=== PATIENT | female | born 1995 | race Caucasian/White ===

== ENCOUNTER 2020-09-01 07:11 | Emergency (ER) | payer SELFPAY ==
[~2020-09-01] VITALS: Ht 165.1 cm; Wt 90.7 kg
[2020-09-01] MEDS ORDERED: SODIUM CHLORIDE 0.9% 1,000 ML IV ONE ×2 (08:00)
[2020-09-01] MEDS ORDERED: ONDANSETRON HCL 4 MG/2 ML VIAL IV ONE (08:00)
[2020-09-01 08:01] LABS: Urine Amorphous Crystal MANY /hpf (None Seen); Urine Bacteria FEW /hpf (None Seen); Urine Blood Negative /uL (Negative); Urine Budding Yeast OCCASIONAL /hpf (None Seen); Urine Mucus MODERATE (None Seen); Urine Specific Gravity 1.034 (1.001-1.035); Urine WBC 30 /hpf (0 - 5)
[2020-09-01 08:11] LABS: Basophils # (auto) 0.1 10 ^3/uL (0-0.2); Basophils % (auto) 0.8 % (0.0-2.0); Eosinophils # (auto) 0.2 10 ^3/uL (0-0.8); Eosinophils % (auto) 1.4 % (0.0-7.0); Hemoglobin 13.2 g/dL (12.2-16.2); Lymphocytes # (auto) 3.5 10 ^3/uL (0.4-5.4); Lymphocytes % (auto) 31.5 % (10.0-50.0); Mean Corpuscular Hemoglobin 28.4 pg (28.0-32.0); Mean Corpuscular Hgb Conc. 33.7 g/dL (32.0-36.0); Mean Corpuscular Volume 84.1 fL (80.0-100.0); Monocytes # (auto) 0.9 10 ^3/uL (0-1.3); Monocytes % (auto) 8.4 % (0.0-12.0); Neutrophils # (auto) 6.5 10 ^3/uL (1.6-8.6); Neutrophils % (auto) 57.9 % (37.0-80.0); Nucleated Red Blood Cells % 0.1 %; Red Blood Cells 4.64 10^6/uL (4.0-5.20); Red Cell Distribution Width 14.6 % (11.8-14.3); White Blood Cell 11.2 10^3/uL (4.4-10.8)
[2020-09-01 08:30] LABS: Potassium 3.8 mmol/L (3.5-5.1)
[2020-09-01] MEDS ORDERED: cefTRIAXone 1GM/50ML D5W 50 ML IV ONE ×2 (08:36→08:45)
[2020-09-01 08:38] LABS: Albumin 3.8 g/dL (3.4-5.0); BUN/Creatinine Ratio 14.3; Bilirubin, Total 0.4 mg/dL (0.2-1.0); Calcium 8.9 mg/dL (8.5-10.1); Total Protein 7.7 g/dL (6.4-8.2)
[2020-09-01 11:59] VITALS: BP 119/58
== END 2020-09-01 12:03 | disposition home or self-care (01) ==
LOC: ER 07:11
DX: N39.0 Urinary tract infection, site not specified (principal); K29.70 Gastritis, unspecified, without bleeding
CPT/HCPCS: 36415; 74176; 80053; 81001; 81025; 85025; 96365; 96375; 99285; J0696; J2405; J7030

== ENCOUNTER 2020-09-15 01:53 | Emergency (ER) | payer OTHER ==
[~2020-09-15] VITALS: Ht 165.1 cm; Wt 90.7 kg
[2020-09-15 02:03] VITALS: BP 149/62
[2020-09-15 02:24] LABS: Basophils # (auto) 0.3 10 ^3/uL (0-0.2); Eosinophils # (auto) 0.1 10 ^3/uL (0-0.8); Eosinophils % (auto) 0.6 % (0.0-7.0); Hematocrit 39.6 % (36.0-46.0); Hemoglobin 13.3 g/dL (12.2-16.2); Lymphocytes % (auto) 19.4 % (10.0-50.0); Mean Corpuscular Hemoglobin 28.1 pg (28.0-32.0); Mean Corpuscular Hgb Conc. 33.6 g/dL (32.0-36.0); Mean Corpuscular Volume 83.5 fL (80.0-100.0); Monocytes % (auto) 6.3 % (0.0-12.0); Neutrophils % (auto) 71.7 % (37.0-80.0); Nucleated Red Blood Cells % 0.2 %; Red Blood Cells 4.74 10^6/uL (4.0-5.20); Red Cell Distribution Width 14.1 % (11.8-14.3); White Blood Cell 15.4 10^3/uL (4.4-10.8)
[2020-09-15 02:44] LABS: Alanine Aminotransferase 21 U/L (13-56); Anion Gap 9 (5-15); Aspartate Aminotransferase 17 U/L (15-37); BUN/Creatinine Ratio 12.5; Blood Urea Nitrogen 8 mg/dL (7-18); Calcium 9.1 mg/dL (8.5-10.1); Carbon Dioxide 22 mmol/L (21-32); Chloride 109 mmol/L (98-107); GFR African American 144 mL/min; GFR Non-African American 119 mL/min; Glucose 107 mg/dL (74-106); Potassium 3.5 mmol/L (3.5-5.1); Sodium 140 mmol/L (136-145)
[2020-09-15 02:48] LABS: Alkaline Phosphatase 92 U/L (45-117); Bilirubin, Total 0.4 mg/dL (0.2-1.0); Total Protein 8.2 g/dL (6.4-8.2)
[2020-09-15 04:03] LABS: Urine Bacteria FEW /hpf (None Seen); Urine Blood 2+ /uL (Negative); Urine Mucus MODERATE (None Seen); Urine Specific Gravity 1.042 (1.001-1.035); Urine WBC 17 /hpf (0 - 5)
== END 2020-09-15 05:08 | disposition left against medical advice (07) ==
LOC: ER 01:56
DX: R07.9 Chest pain, unspecified (principal); R06.02 Shortness of breath; R11.2 Nausea with vomiting, unspecified; M54.5 Low back pain; Z53.21 Procedure and treatment not carried out due to patient leaving prior to being seen by health care provider
CPT/HCPCS: 36415; 71045; 80053; 81001; 83880; 84484; 85025; 93005

== ENCOUNTER 2020-09-15 15:02 | Emergency (ER) | payer SELFPAY ==
[~2020-09-15] VITALS: Ht 165.1 cm; Wt 90.7 kg
[2020-09-15 15:28] VITALS: BP 117/84
[2020-09-15 18:47] LABS: Urine Bacteria NONE SEEN /hpf (None Seen); Urine Blood 3+ /uL (Negative); Urine Mucus FEW (None Seen); Urine Specific Gravity 1.022 (1.001-1.035); Urine WBC 136 /hpf (0 - 5)
== END 2020-09-15 18:27 | disposition left against medical advice (07) ==
LOC: ER 15:02
DX: N39.0 Urinary tract infection, site not specified (principal); Z53.21 Procedure and treatment not carried out due to patient leaving prior to being seen by health care provider
CPT/HCPCS: 81001

== ENCOUNTER 2020-09-19 04:23 | Emergency (ER) | payer MEDICAID, OTHER ==
[~2020-09-19] VITALS: Ht 160 cm; Wt 81.6 kg
[2020-09-19 05:39] LABS: Albumin 3.8 g/dL (3.4-5.0); Calcium 9.5 mg/dL (8.5-10.1)
[2020-09-19 05:42] LABS: BUN/Creatinine Ratio 11.4; Bilirubin, Total 0.6 mg/dL (0.2-1.0); Total Protein 8.1 g/dL (6.4-8.2)
[2020-09-19 06:40] LABS: Potassium 5.7 mmol/L (3.5-5.1)
[2020-09-19] MEDS ORDERED: PROMETHAZINE HCL 25 MG/ML 1ML IV ONE (06:45)
[2020-09-19] MEDS ORDERED: SODIUM CHLORIDE 0.9% 1,000 ML IV ONE ×3 (06:45)
[2020-09-19] MEDS ORDERED: ONDANSETRON HCL 4 MG/2 ML VIAL IV ONE (06:45)
[2020-09-19] MEDS ORDERED: KETOROLAC TROMETH 30 MG/ML 1ML VIAL IV ONE ×2 (06:45)
[2020-09-19 06:53] LABS: Urine Bacteria NONE SEEN /hpf (None Seen); Urine Blood 2+ /uL (Negative); Urine Mucus FEW (None Seen); Urine Specific Gravity 1.018 (1.001-1.035); Urine WBC 2 /hpf (0 - 5)
[2020-09-19 06:59] LABS: Basophils # (auto) 0.1 10 ^3/uL (0-0.2); Basophils % (auto) 0.6 % (0.0-2.0); Eosinophils # (auto) 0.1 10 ^3/uL (0-0.8); Eosinophils % (auto) 0.5 % (0.0-7.0); Hematocrit 40.1 % (36.0-46.0); Hemoglobin 13.8 g/dL (12.2-16.2); Lymphocytes # (auto) 3.7 10 ^3/uL (0.4-5.4); Lymphocytes % (auto) 28.3 % (10.0-50.0); Mean Corpuscular Hemoglobin 28.1 pg (28.0-32.0); Mean Corpuscular Hgb Conc. 34.5 g/dL (32.0-36.0); Mean Corpuscular Volume 81.4 fL (80.0-100.0); Monocytes % (auto) 7.7 % (0.0-12.0); Neutrophils # (auto) 8.3 10 ^3/uL (1.6-8.6); Neutrophils % (auto) 62.9 % (37.0-80.0); Nucleated Red Blood Cells % 0.1 %; Red Blood Cells 4.92 10^6/uL (4.0-5.20); White Blood Cell 13.2 10^3/uL (4.4-10.8)
[2020-09-19 07:25] LABS: Albumin 4.4 g/dL (3.4-5.0); Calcium 9.9 mg/dL (8.5-10.1); Potassium 3.8 mmol/L (3.5-5.1)
[2020-09-19 07:30] LABS: Bilirubin, Total 0.6 mg/dL (0.2-1.0); Total Protein 7.9 g/dL (6.4-8.2)
[2020-09-19] MEDS ORDERED: ALUM & MAG HYDROX-SIMETH LIQ(MAALOX) 30 ML PO ONE (08:30)
[2020-09-19] MEDS ORDERED: LIDOCAINE VISCOUS 2% 15ML UD PO ONE (08:30)
[2020-09-19] MEDS ORDERED: DONNATAL 5ml ORAL Elix (BELLADONNA ALK-PHENOBARB) PO ONE (08:30)
[2020-09-19 09:30] VITALS: BP 120/73
== END 2020-09-19 09:51 | disposition home or self-care (01) ==
LOC: ER 04:23 → EDBD 04:23 → ER 09:51
DX: R10.13 Epigastric pain (principal); R11.2 Nausea with vomiting, unspecified; R19.7 Diarrhea, unspecified
CPT/HCPCS: 36415; 71045; 74176; 80053; 81001; 83605; 85025; 87040; 96361; 96374; 96375; 99285; J1885; J2550; J7030

== ENCOUNTER 2021-03-02 11:41 | Emergency (ER) | payer MEDICAID ==
[~2021-03-02] VITALS: Ht 162.6 cm; Wt 90.7 kg
[2021-03-02 11:46] VITALS: BP 110/71
== END 2021-03-02 13:33 | disposition left against medical advice (07) ==
LOC: ER 11:41
DX: R07.0 Pain in throat (principal); H92.02 Otalgia, left ear; Z20.822 Contact with and (suspected) exposure to COVID-19; Z53.21 Procedure and treatment not carried out due to patient leaving prior to being seen by health care provider
CPT/HCPCS: 36415; 87426

== ENCOUNTER 2021-10-11 06:42 | Emergency (ER) | payer MEDICAID ==
[~2021-10-11] VITALS: Ht 165.1 cm; Wt 86.2 kg
[2021-10-11] MEDS ORDERED: SODIUM CHLORIDE 0.9% 1,000 ML IVB ONE (07:00)
[2021-10-11] MEDS: SODIUM CHLORIDE 0.9% 1,000 ML IV ONE ×2 (07:37→10:23)
[2021-10-11] MEDS ORDERED: MORPHINE SULFATE 4 MG/ML SYR/VIAL IV ONE (07:45)
[2021-10-11] MEDS ORDERED: PROCHLORPERAZINE EDISYLATE 5 MG/ML 2ML VIAL IV ONE (07:45)
[2021-10-11 07:55] LABS: Basophils # (auto) 0.1 10 ^3/uL (0-0.2); Basophils % (auto) 0.6 % (0.0-2.0); Eosinophils # (auto) 0.1 10 ^3/uL (0-0.8); Eosinophils % (auto) 0.4 % (0.0-7.0); Hematocrit 40.2 % (36.0-46.0); Hemoglobin 13.5 g/dL (12.2-16.2); Lymphocytes # (auto) 2.7 10 ^3/uL (0.4-5.4); Lymphocytes % (auto) 16.9 % (10.0-50.0); Mean Corpuscular Hemoglobin 28.5 pg (28.0-32.0); Mean Corpuscular Hgb Conc. 33.6 g/dL (32.0-36.0); Monocytes % (auto) 6.2 % (0.0-12.0); Neutrophils # (auto) 12.2 10 ^3/uL (1.6-8.6); Neutrophils % (auto) 75.9 % (37.0-80.0); Red Blood Cells 4.73 10^6/uL (4.0-5.20); Red Cell Distribution Width 14.1 % (11.8-14.3); White Blood Cell 16.1 10^3/uL (4.4-10.8)
[2021-10-11 08:05] LABS: Albumin 4.1 g/dL (3.4-5.0); Calcium 9.2 mg/dL (8.5-10.1); Potassium 3.5 mmol/L (3.5-5.1)
[2021-10-11 08:08] LABS: BUN/Creatinine Ratio 10.8; Bilirubin, Total 0.5 mg/dL (0.2-1.0); Total Protein 7.9 g/dL (6.4-8.2)
[2021-10-11 10:02] LABS: Urine Bacteria NONE SEEN /hpf (None Seen); Urine Blood Negative /uL (Negative); Urine Mucus FEW (None Seen); Urine Specific Gravity 1.026 (1.001-1.035); Urine WBC 1 /hpf (0 - 5)
[2021-10-11 10:09] LABS: Alcohol, Urine < 3.0 mg/dL (0-10); Amphetamine Screen, Urine NEGATIVE (NEGATIVE); Barbiturate Scree,Urine NEGATIVE (NEGATIVE); Benzodiazephine Screen, Urine NEGATIVE (NEGATIVE); Cannabinoid Screen, Urine POSITIVE (NEGATIVE); Cocaine Screen, Urine NEGATIVE (NEGATIVE); Phencyclidine Screen, Urine NEGATIVE (NEGATIVE)
[2021-10-11 10:17] LABS: Opiate Scree,Urine POSITIVE (NEGATIVE)
[2021-10-11 12:00] VITALS: BP 107/65
== END 2021-10-11 13:03 | disposition home or self-care (01) ==
LOC: EDBD 06:42 → ER 06:42
DX: F12.99 Cannabis use, unspecified with unspecified cannabis-induced disorder (principal); R10.84 Generalized abdominal pain; Z91.041 Radiographic dye allergy status
CPT/HCPCS: 36415; 74176; 80053; 80307; 81001; 81025; 83605; 85025; 87040; 96361; 96374; 96375; 99285; J0780; J2270; J7030

== ENCOUNTER 2021-10-21 06:50 | Emergency (ER) | payer MEDICAID ==
[~2021-10-21] VITALS: Ht 165.1 cm; Wt 90.0 kg
[2021-10-21] MEDS ORDERED: PROCHLORPERAZINE EDISYLATE 5 MG/ML 2ML VIAL IV ONE (07:30)
[2021-10-21] MEDS ORDERED: SODIUM CHLORIDE 0.9% 1,000 ML IVB ONE (07:30)
[2021-10-21] MEDS ORDERED: PANTOPRAZOLE 40 MG/10 ML VIAL INJ IV ONE (07:30)
[2021-10-21 08:55] LABS: Albumin 3.6 g/dL (3.4-5.0); Calcium 8.5 mg/dL (8.5-10.1); Potassium 3.6 mmol/L (3.5-5.1)
[2021-10-21 08:58] LABS: BUN/Creatinine Ratio 9.8; Bilirubin, Total 0.4 mg/dL (0.2-1.0); Total Protein 6.7 g/dL (6.4-8.2)
[2021-10-21 09:19] LABS: Urine Bacteria NONE SEEN /hpf (None Seen); Urine Blood Negative /uL (Negative); Urine Specific Gravity 1.005 (1.001-1.035); Urine WBC <1 /hpf (0 - 5)
[2021-10-21 09:34] LABS: Alcohol, Urine < 3.0 mg/dL (0-10); Amphetamine Screen, Urine NEGATIVE (NEGATIVE); Barbiturate Scree,Urine NEGATIVE (NEGATIVE); Benzodiazephine Screen, Urine NEGATIVE (NEGATIVE); Cannabinoid Screen, Urine POSITIVE (NEGATIVE); Cocaine Screen, Urine NEGATIVE (NEGATIVE); Opiate Scree,Urine NEGATIVE (NEGATIVE); Phencyclidine Screen, Urine NEGATIVE (NEGATIVE)
[2021-10-21] MEDS ORDERED: PANT40TA2 PO (09:58)
[2021-10-21 11:00] VITALS: BP 124/74
== END 2021-10-21 11:04 | disposition home or self-care (01) ==
LOC: EDBD 06:50 → ER 06:50 → EDUNIT# 06:50 → ER 11:04
DX: R10.84 Generalized abdominal pain (principal); R11.2 Nausea with vomiting, unspecified; Z79.899 Other long term (current) drug therapy; Z91.041 Radiographic dye allergy status
CPT/HCPCS: 36415; 76705; 80053; 80307; 81001; 81025; 82150; 83690; 85025; 96361; 96374; 96375; 99284; C9113; J0780; J7030

== ENCOUNTER 2022-07-19 01:11 | Emergency (ER) | payer MEDICAID ==
[~2022-07-19] VITALS: Ht 165.1 cm; Wt 90.9 kg
[~2022-07-19 01:11] MED LIST: PANT40TA2 PO
[2022-07-19 01:53] LABS: Basophils # (auto) 0.1 10 ^3/uL (0-0.2); Basophils % (auto) 0.4 % (0.0-2.0); Eosinophils # (auto) 0.1 10 ^3/uL (0-0.8); Eosinophils % (auto) 0.4 % (0.0-7.0); Hematocrit 40.1 % (36.0-46.0); Hemoglobin 13.6 g/dL (12.2-16.2); Lymphocytes # (auto) 2.8 10 ^3/uL (0.4-5.4); Lymphocytes % (auto) 18.6 % (10.0-50.0); Mean Corpuscular Hemoglobin 28.6 pg (28.0-32.0); Mean Corpuscular Volume 84.2 fL (80.0-100.0); Monocytes # (auto) 1.5 10 ^3/uL (0-1.3); Monocytes % (auto) 9.9 % (0.0-12.0); Neutrophils # (auto) 10.5 10 ^3/uL (1.6-8.6); Neutrophils % (auto) 70.7 % (37.0-80.0); Red Blood Cells 4.76 10^6/uL (4.0-5.20); Red Cell Distribution Width 14.5 % (11.8-14.3); White Blood Cell 14.8 10^3/uL (4.4-10.8)
[2022-07-19 02:05] LABS: Calcium 9.4 mg/dL (8.5-10.1); Potassium 3.2 mmol/L (3.5-5.1)
[2022-07-19 02:07] LABS: BUN/Creatinine Ratio 12.5 (10.0-20.0)
[2022-07-19 02:09] LABS: Bilirubin, Total 0.9 mg/dL (0.2-1.0); Total Protein 7.9 g/dL (6.4-8.2)
[2022-07-19] MEDS ORDERED: ONDANSETRON HCL 4 MG/2 ML VIAL IV ONE (02:45)
[2022-07-19] MEDS ORDERED: diphenhdrAMINE HCL 50 MG/1 ML VL IV ONE (02:45)
[2022-07-19] MEDS ORDERED: MORPHINE SULFATE 4 MG/ML SYR/VIAL IV ONE ×2 (02:45→04:30)
[2022-07-19] MEDS ORDERED: SODIUM CHLORIDE 0.9% 1,000 ML IV ONE (02:45)
[2022-07-19] MEDS ORDERED: IOHEXOL 350 MG/ML 100ML IJ ONE (02:47)
[2022-07-19 02:58] LABS: Urine Bacteria FEW /hpf (None Seen); Urine Blood Negative /uL (Negative); Urine Hyaline Cast FEW /lpf (0 - 2); Urine Mucus FEW (None Seen); Urine Specific Gravity 1.016 (1.001-1.035); Urine WBC 12 /hpf (0 - 5)
[2022-07-19] MEDS ORDERED: ONDANSETRON HCL 4 MG/2 ML VIAL ONE (03:17)
[2022-07-19] MEDS ORDERED: DICY10CA PO (04:28)
[2022-07-19] MEDS ORDERED: PRED20TA2 PO (04:28)
[2022-07-19] MEDS ORDERED: ONDA-144 PO (04:28)
[2022-07-19] MEDS ORDERED: DexAMETHasone SOD PHOS 10MG/1ML VIAL INJ IV ONE (04:30)
[2022-07-19 05:46] VITALS: BP 98/62
== END 2022-07-19 06:35 | disposition home or self-care (01) ==
LOC: ER 01:11 → EDBD 01:11 → ER 06:35
DX: R10.13 Epigastric pain (principal); R11.2 Nausea with vomiting, unspecified; F12.10 Cannabis abuse, uncomplicated; Z88.8 Allergy status to other drugs, medicaments and biological substances
CPT/HCPCS: 36415; 74177; 80053; 81001; 83690; 84702; 85025; 96361; 96374; 96375; 96376; 99285; J1100; J1200; J2270; J2405; J7030; Q9967

== ENCOUNTER 2022-07-20 07:40 | Inpatient (IN) | payer MEDICAID ==
[~2022-07-20] VITALS: Ht 165.1 cm; Wt 98.5 kg
[~2022-07-20 07:40] MED LIST changes: +DICY10CA PO; +ONDA-144 PO; +PRED20TA2 PO
[2022-07-20 08:09] LABS: Basophils # (auto) 0 10 ^3/uL (0-0.2); Basophils % (auto) 0.2 % (0.0-2.0); Eosinophils # (auto) 0 10 ^3/uL (0-0.8); Eosinophils % (auto) 0.1 % (0.0-7.0); Hematocrit 37.9 % (36.0-46.0); Hemoglobin 12.7 g/dL (12.2-16.2); Lymphocytes # (auto) 4.4 10 ^3/uL (0.4-5.4); Lymphocytes % (auto) 28.2 % (10.0-50.0); Mean Corpuscular Hemoglobin 28.5 pg (28.0-32.0); Mean Corpuscular Hgb Conc. 33.4 g/dL (32.0-36.0); Mean Corpuscular Volume 85.1 fL (80.0-100.0); Monocytes # (auto) 1.4 10 ^3/uL (0-1.3); Monocytes % (auto) 8.7 % (0.0-12.0); Neutrophils # (auto) 9.8 10 ^3/uL (1.6-8.6); Neutrophils % (auto) 62.8 % (37.0-80.0); Nucleated Red Blood Cells % 0.1 %; Red Blood Cells 4.45 10^6/uL (4.0-5.20); Red Cell Distribution Width 14.4 % (11.8-14.3); White Blood Cell 15.6 10^3/uL (4.4-10.8)
[2022-07-20 08:18] LABS: Urine Bacteria FEW /hpf (None Seen); Urine Blood Negative /uL (Negative); Urine Hyaline Cast FEW /lpf (0 - 2); Urine Mucus FEW (None Seen); Urine Specific Gravity 1.024 (1.001-1.035); Urine WBC 9 /hpf (0 - 5)
[2022-07-20 08:20] LABS: Albumin 3.9 g/dL (3.4-5.0); Calcium 8.9 mg/dL (8.5-10.1); Potassium 3.2 mmol/L (3.5-5.1)
[2022-07-20 08:23] LABS: BUN/Creatinine Ratio 10.2 (10.0-20.0); Bilirubin, Total 0.6 mg/dL (0.2-1.0); Total Protein 7.5 g/dL (6.4-8.2)
[2022-07-20] MEDS ORDERED: SODIUM CHLORIDE 0.9% 1,000 ML IV ONE ×2 (08:45)
[2022-07-20] MEDS ORDERED: cefTRIAXone 1GM/50ML D5W 50 ML IV ONE (08:45)
[2022-07-20 09:08] LABS: Alcohol, Urine < 3.0 mg/dL (0-10); Amphetamine Screen, Urine NEGATIVE (NEGATIVE); Barbiturate Scree,Urine NEGATIVE (NEGATIVE); Benzodiazephine Screen, Urine NEGATIVE (NEGATIVE); Cannabinoid Screen, Urine POSITIVE (NEGATIVE); Cocaine Screen, Urine POSITIVE (NEGATIVE); Opiate Scree,Urine NEGATIVE (NEGATIVE); Phencyclidine Screen, Urine NEGATIVE (NEGATIVE)
[2022-07-20] MEDS ORDERED: SOD CHL 0.9%/ KCL 40MEQ 1,000 ML IV ONE (10:00)
[2022-07-20] MEDS: PANTOPRAZOLE 40 MG/10 ML VIAL INJ IV SCH ×2 (10:27→22:09)
[2022-07-20] MEDS: ONDANSETRON HCL 4 MG/2 ML VIAL IV PRN ×2 (10:31→20:26)
[2022-07-20] MEDS: MORPHINE SULFATE INJ 2 MG/ml SYRG IV PRN (10:37)
[2022-07-20 11:05] LABS: INR 1.11 (0.9-1.15)
[2022-07-20] MEDS: metroNIDAZOLE 500MG/100ML 100 ML IV SCH ×2 (11:55→18:19)
[2022-07-20] MEDS: SODIUM CHLORIDE 0.9% 1,000 ML IV SCH ×2 (14:01→18:18)
[2022-07-20 18:09] VITALS: BP 110/74
[2022-07-20] MEDS ORDERED: HYDROcodone-ACET 5/325MG TAB PO ONE (21:15)
[2022-07-20 22:00] VITALS: BP 104/67
[2022-07-20 22:42] LABS: Hematocrit 34.2 % (36.0-46.0); Hemoglobin 11.3 g/dL (12.2-16.2)
[2022-07-21] MEDS: SODIUM CHLORIDE 0.9% 1,000 ML IV SCH ×2 (02:40→11:00)
[2022-07-21] MEDS: metroNIDAZOLE 500MG/100ML 100 ML IV SCH ×2 (03:32→12:23)
[2022-07-21] MEDS: ONDANSETRON HCL 4 MG/2 ML VIAL IV PRN ×2 (03:46→08:00)
[2022-07-21] MEDS: MORPHINE SULFATE INJ 2 MG/ml SYRG IV PRN ×2 (04:43→10:00)
[2022-07-21 05:00] VITALS: BP 140/74
[2022-07-21 05:59] LABS: Basophils # (auto) 0 10 ^3/uL (0-0.2); Basophils % (auto) 0.2 % (0.0-2.0); Eosinophils # (auto) 0 10 ^3/uL (0-0.8); Eosinophils % (auto) 0.1 % (0.0-7.0); Hematocrit 35.4 % (36.0-46.0); Hemoglobin 12.2 g/dL (12.2-16.2); Lymphocytes # (auto) 5.8 10 ^3/uL (0.4-5.4); Lymphocytes % (auto) 35.2 % (10.0-50.0); Mean Corpuscular Hemoglobin 29.2 pg (28.0-32.0); Mean Corpuscular Hgb Conc. 34.4 g/dL (32.0-36.0); Mean Corpuscular Volume 84.9 fL (80.0-100.0); Monocytes # (auto) 1.4 10 ^3/uL (0-1.3); Monocytes % (auto) 8.6 % (0.0-12.0); Neutrophils # (auto) 9.2 10 ^3/uL (1.6-8.6); Neutrophils % (auto) 55.9 % (37.0-80.0); Red Blood Cells 4.17 10^6/uL (4.0-5.20); Red Cell Distribution Width 14.8 % (11.8-14.3); White Blood Cell 16.4 10^3/uL (4.4-10.8)
[2022-07-21 06:17] LABS: Potassium 4.2 mmol/L (3.5-5.1)
[2022-07-21 06:22] LABS: Albumin 3.6 g/dL (3.4-5.0); BUN/Creatinine Ratio 16.2 (10.0-20.0); Bilirubin, Total 0.5 mg/dL (0.2-1.0); Calcium 8.3 mg/dL (8.5-10.1); Total Protein 6.8 g/dL (6.4-8.2)
[2022-07-21] MEDS ORDERED: HYDROcodone-ACET 5/325MG TAB PO ONE (07:45)
[2022-07-21 08:00] VITALS: BP 136/77
[2022-07-21 09:00] VITALS: BP 136/77
[2022-07-21] MEDS ORDERED: cefTRIAXone 1GM/50ML D5W 50 ML IV SCH (09:00)
[2022-07-21 10:14] LABS: Hematocrit 36.4 % (36.0-46.0); Hemoglobin 12.2 g/dL (12.2-16.2)
[2022-07-21] MEDS: PANTOPRAZOLE 40 MG/10 ML VIAL INJ IV SCH (11:23)
[2022-07-21 11:47] VITALS: BP 136/77
[2022-07-21 13:00] VITALS: BP 103/54
== END 2022-07-21 17:28 | disposition home or self-care (01) | DRG 463 ==
LOC: ER 07:40 → OVERFLOW 10:07 → WEST WING 18:03
PROVIDERS: ADMIT Nurse Practitioner Family; ATTEND Internal Medicine
DX: N30.00 Acute cystitis without hematuria (principal); K92.2 Gastrointestinal hemorrhage, unspecified; E86.0 Dehydration; E87.6 Hypokalemia; F12.10 Cannabis abuse, uncomplicated; F14.23 Cocaine dependence with withdrawal; Z91.041 Radiographic dye allergy status
CPT/HCPCS: 36415; 76700; 80053; 80307; 81001; 83690; 85014; 85018; 85025; 85610; 87081; 87086; 96365; 96367; 96375; C9113; G0378; J0696; J2405; J3490

== ENCOUNTER 2022-08-08 04:44 | Emergency (ER) | payer MEDICAID ==
[~2022-08-08] VITALS: Ht 162.6 cm; Wt 97.0 kg
[2022-08-08 05:20] LABS: Urine Amorphous Crystal FEW /hpf (None Seen); Urine Bacteria FEW /hpf (None Seen); Urine Blood Negative /uL (Negative); Urine Mucus FEW (None Seen); Urine Specific Gravity 1.019 (1.001-1.035); Urine WBC <1 /hpf (0 - 5)
[2022-08-08 06:02] LABS: Basophils # (auto) 0.1 10 ^3/uL (0-0.2); Basophils % (auto) 0.6 % (0.0-2.0); Eosinophils # (auto) 0.2 10 ^3/uL (0-0.8); Eosinophils % (auto) 1.4 % (0.0-7.0); Hematocrit 37.9 % (36.0-46.0); Hemoglobin 12.9 g/dL (12.2-16.2); Lymphocytes # (auto) 2.1 10 ^3/uL (0.4-5.4); Lymphocytes % (auto) 16.2 % (10.0-50.0); Mean Corpuscular Hemoglobin 29.7 pg (28.0-32.0); Mean Corpuscular Hgb Conc. 34.1 g/dL (32.0-36.0); Mean Corpuscular Volume 86.9 fL (80.0-100.0); Monocytes # (auto) 0.9 10 ^3/uL (0-1.3); Monocytes % (auto) 6.8 % (0.0-12.0); Neutrophils # (auto) 9.7 10 ^3/uL (1.6-8.6); Nucleated Red Blood Cells % 0.1 %; Red Blood Cells 4.36 10^6/uL (4.0-5.20); Red Cell Distribution Width 14.9 % (11.8-14.3)
[2022-08-08 06:12] LABS: Potassium 4.1 mmol/L (3.5-5.1)
[2022-08-08 06:21] LABS: Albumin 3.9 g/dL (3.4-5.0); BUN/Creatinine Ratio 8.3 (10.0-20.0); Bilirubin, Total 0.3 mg/dL (0.2-1.0); Calcium 9.2 mg/dL (8.5-10.1); Total Protein 7.3 g/dL (6.4-8.2)
[2022-08-08] MEDS ORDERED: CEPH250C PO (08:42)
[2022-08-08] MEDS ORDERED: cefTRIAXone SOD 1,000 MG VL IM ONE (08:45)
[2022-08-08 08:57] VITALS: BP 142/84
== END 2022-08-08 09:02 | disposition home or self-care (01) ==
LOC: ER 04:44
DX: I88.0 Nonspecific mesenteric lymphadenitis (principal); F12.10 Cannabis abuse, uncomplicated; R10.2 Pelvic and perineal pain; Z88.8 Allergy status to other drugs, medicaments and biological substances
CPT/HCPCS: 36415; 74176; 80053; 81001; 83690; 84702; 85025; 96372; 99285; J0696

== ENCOUNTER 2022-11-14 10:41 | Inpatient (IN) | payer MEDICAID ==
[~2022-11-14] VITALS: Ht 153.4 cm; Wt 104.4 kg
[~2022-11-14 10:41] MED LIST changes: +CEPH250C PO
[2022-11-14 11:25] LABS: Basophils # (auto) 0.1 10 ^3/uL (0-0.2); Basophils % (auto) 0.6 % (0.0-2.0); Eosinophils # (auto) 0.1 10 ^3/uL (0-0.8); Eosinophils % (auto) 0.9 % (0.0-7.0); Hematocrit 40.4 % (36.0-46.0); Hemoglobin 13.6 g/dL (12.2-16.2); Lymphocytes # (auto) 2.6 10 ^3/uL (0.4-5.4); Lymphocytes % (auto) 16.4 % (10.0-50.0); Mean Corpuscular Hemoglobin 28.6 pg (28.0-32.0); Mean Corpuscular Hgb Conc. 33.7 g/dL (32.0-36.0); Mean Corpuscular Volume 84.8 fL (80.0-100.0); Monocytes # (auto) 0.8 10 ^3/uL (0-1.3); Monocytes % (auto) 5.4 % (0.0-12.0); Neutrophils % (auto) 76.7 % (37.0-80.0); Red Blood Cells 4.76 10^6/uL (4.0-5.20); Red Cell Distribution Width 13.9 % (11.8-14.3); White Blood Cell 15.6 10^3/uL (4.4-10.8)
[2022-11-14 11:31] LABS: Urine Bacteria NONE SEEN /hpf (None Seen); Urine Blood Negative /uL (Negative); Urine Clarity HAZY (Clear); Urine Color Yellow (Yellow); Urine Mucus FEW (None Seen); Urine Protein, UAD 1+ (Negative); Urine Specific Gravity 1.029 (1.001-1.035); Urine Urobilinogen Normal (Negative); Urine WBC 2 /hpf (0 - 5); Urine pH 8.5 (5.0-8.0)
[2022-11-14 11:52] LABS: Alanine Aminotransferase 11 U/L (7-40); Albumin 4.7 g/dL (3.2-4.8); Alkaline Phosphatase 82 U/L (46-116); Anion Gap 10 (5-15); Aspartate Aminotransferase 15 U/L (13-40); BUN/Creatinine Ratio 10.7 (10.0-20.0); Blood Urea Nitrogen 9 mg/dL (9-23); Calcium 9.6 mg/dL (8.7-10.4); Carbon Dioxide 20 mmol/L (20-30); Chloride 109 mmol/L (98-107); Glucose 153 mg/dL (74-106); Lipase 40 U/L (12-53); Potassium 3.9 mmol/L (3.5-5.1); Sodium 139 mmol/L (136-145)
[2022-11-14 11:53] LABS: Bilirubin, Total 0.6 mg/dL (0.2-1.0); Total Protein 7.6 g/dL (5.7-8.2)
[2022-11-14] MEDS ORDERED: MORPHINE SULFATE 4 MG/ML SYR/VIAL IV ONE (12:15)
[2022-11-14] MEDS ORDERED: ONDANSETRON HCL 4 MG/2 ML VIAL IV ONE (12:15)
[2022-11-14] MEDS ORDERED: SODIUM CHLORIDE 0.9% 1,000 ML IV ONE ×2 (12:15)
[2022-11-14 12:58] LABS: Amphetamine Screen, Urine Neg (NEGATIVE); Barbiturate Scree,Urine Neg (NEGATIVE); Benzodiazephine Screen, Urine Neg (NEGATIVE); Cannabinoid Screen, Urine Pos (NEGATIVE); Cocaine Screen, Urine Pos (NEGATIVE); Opiate Scree,Urine Neg (NEGATIVE); Phencyclidine Screen, Urine Neg (NEGATIVE)
[2022-11-14 15:07] VITALS: PULSE 65; RESP 14; O2SAT 98
[2022-11-14] MEDS ORDERED: cefTRIAXone 1GM/50ML D5W 50 ML IV ONE (15:30)
[2022-11-14] MEDS ORDERED: DOCUSATE SOD 100 MG CAP PO PRN (15:30)
[2022-11-14] MEDS ORDERED: ACETAMINOPHEN 325 MG TAB PO PRN (15:30)
[2022-11-14] MEDS: ONDANSETRON HCL 4 MG/2 ML VIAL IV PRN ×2 (15:42→19:54)
[2022-11-14] MEDS ORDERED: IPRATROPIUM BROM 0.5 MG/2.5ML INH SOL NEB PRN (15:45)
[2022-11-14] MEDS ORDERED: ALBUTEROL SULF 2.5 MG/0.5ML(0.5%) NEB SOLN NEB PRN (15:45)
[2022-11-14 15:55] VITALS: BP 139/76; PULSE 51; RESP 15; TEMP 98; O2SAT 100
[2022-11-14] MEDS: HYDROcodone-ACET 5/325MG TAB PO PRN ×2 (16:16→19:55)
[2022-11-14] MEDS: MORPHINE SULFATE INJ 2 MG/ml SYRG IV PRN ×2 (16:46→20:56)
[2022-11-14] MEDS: SODIUM CHLORIDE 0.9% 1,000 ML IV SCH ×2 (17:15→22:48)
[2022-11-14 19:39] VITALS: PULSE 63; RESP 16; O2SAT 99
[2022-11-15] VITALS (10 sets, daily range): BP systolic 110–112; BP diastolic 66–77; PULSE 52–68; RESP 8–20; TEMP 97.6–98.3; O2SAT 96–100
[2022-11-15] MEDS: ONDANSETRON HCL 4 MG/2 ML VIAL IV PRN ×4 (02:34→20:33)
[2022-11-15] MEDS: MORPHINE SULFATE INJ 2 MG/ml SYRG IV PRN ×3 (02:35→13:17)
[2022-11-15] MEDS: HYDROcodone-ACET 5/325MG TAB PO PRN ×3 (03:07→19:07)
[2022-11-15 05:19] LABS: Basophils # (auto) 0.1 10 ^3/uL (0-0.2); Basophils % (auto) 0.6 % (0.0-2.0); Eosinophils # (auto) 0 10 ^3/uL (0-0.8); Eosinophils % (auto) 0.2 % (0.0-7.0); Hematocrit 35.4 % (36.0-46.0); Hemoglobin 11.9 g/dL (12.2-16.2); Lymphocytes # (auto) 3.3 10 ^3/uL (0.4-5.4); Mean Corpuscular Hemoglobin 28.9 pg (28.0-32.0); Mean Corpuscular Hgb Conc. 33.7 g/dL (32.0-36.0); Mean Corpuscular Volume 85.8 fL (80.0-100.0); Monocytes # (auto) 1.8 10 ^3/uL (0-1.3); Monocytes % (auto) 7.5 % (0.0-12.0); Neutrophils # (auto) 18.4 10 ^3/uL (1.6-8.6); Neutrophils % (auto) 77.7 % (37.0-80.0); Nucleated Red Blood Cells % 0.1 %; Red Blood Cells 4.13 10^6/uL (4.0-5.20); Red Cell Distribution Width 14.3 % (11.8-14.3); White Blood Cell 23.6 10^3/uL (4.4-10.8)
[2022-11-15 05:34] LABS: Alanine Aminotransferase 10 U/L (7-40); Alkaline Phosphatase 63 U/L (46-116); Anion Gap 11 (5-15); Aspartate Aminotransferase 13 U/L (13-40); Calcium 8.6 mg/dL (8.5-10.1); Carbon Dioxide 19 mmol/L (20-30); Chloride 110 mmol/L (98-107); Glucose 119 mg/dL (74-106); Potassium 3.5 mmol/L (3.5-5.1); Sodium 140 mmol/L (136-145)
[2022-11-15] MEDS: SODIUM CHLORIDE 0.9% 1,000 ML IV SCH ×3 (05:34→18:16)
[2022-11-15 05:35] LABS: Bilirubin, Total 0.6 mg/dL (0.2-1.0); Total Protein 6.5 g/dL (5.7-8.2)
[2022-11-15 05:42] LABS: BUN/Creatinine Ratio 8.9 (10.0-20.0); Blood Urea Nitrogen < 5 mg/dL (9-23)
[2022-11-15] MEDS ORDERED: METOCLOPRAMIDE HCL 5MG/ml INJ 2ml VIAL IV ONE (09:30)
[2022-11-15] MEDS: cefTRIAXone 1GM/50ML D5W 50 ML IV SCH (09:35)
[2022-11-15 11:34] LABS: COVID19 ANTIGEN SOFIA FIA NEGATIVE (NEGATIVE)
[2022-11-16] VITALS (7 sets, daily range): BP systolic 106–165; BP diastolic 55–91; PULSE 49–72; RESP 17–22; TEMP 98.2–98.6; O2SAT 97–100
[2022-11-16] MEDS ORDERED: MAALOX PLUS or MAALOX 30 ML PO PRN (00:30)
[2022-11-16] MEDS: SODIUM CHLORIDE 0.9% 1,000 ML IV SCH ×4 (00:50→20:50)
[2022-11-16] MEDS: ONDANSETRON HCL 4 MG/2 ML VIAL IV PRN (01:45)
[2022-11-16] MEDS: MORPHINE SULFATE INJ 2 MG/ml SYRG IV PRN ×2 (01:45→22:01)
[2022-11-16] MEDS: HYDROcodone-ACET 5/325MG TAB PO PRN ×3 (04:14→16:24)
[2022-11-16] MEDS ORDERED: PROMETHAZINE HCL 25 MG/ML 1ML IV PRN (04:45)
[2022-11-16] MEDS: PROMETHAZINE HCL 25 MG/ML 1ML IV PRN ×3 (06:53→17:39)
[2022-11-16] MEDS: PANTOPRAZOLE 40 MG TAB PO SCH (10:51)
[2022-11-16] MEDS: cefTRIAXone 1GM/50ML D5W 50 ML IV SCH (10:51)
[2022-11-16] MEDS ORDERED: SUCRALFATE 1 GM/10 ML ORAL SUSP PO ONE (12:45)
[2022-11-16 20:13] LABS: Basophils # (auto) 0 10 ^3/uL (0-0.2); Basophils % (auto) 0.4 % (0.0-2.0); Eosinophils # (auto) 0 10 ^3/uL (0-0.8); Eosinophils % (auto) 0.2 % (0.0-7.0); Hematocrit 34.2 % (36.0-46.0); Hemoglobin 11.5 g/dL (12.2-16.2); Lymphocytes # (auto) 2.4 10 ^3/uL (0.4-5.4); Mean Corpuscular Hemoglobin 28.5 pg (28.0-32.0); Mean Corpuscular Hgb Conc. 33.5 g/dL (32.0-36.0); Mean Corpuscular Volume 85.1 fL (80.0-100.0); Monocytes # (auto) 0.7 10 ^3/uL (0-1.3); Monocytes % (auto) 7.4 % (0.0-12.0); Neutrophils # (auto) 6.7 10 ^3/uL (1.6-8.6); Red Blood Cells 4.02 10^6/uL (4.0-5.20); Red Cell Distribution Width 13.8 % (11.8-14.3); White Blood Cell 9.9 10^3/uL (4.4-10.8)
[2022-11-16 20:32] LABS: Alanine Aminotransferase 15 U/L (7-40); Albumin 3.9 g/dL (3.2-4.8); Alkaline Phosphatase 62 U/L (46-116); Amylase 44 U/L (30-118); Anion Gap 6 (5-15); Aspartate Aminotransferase 14 U/L (13-40); Calcium 8.5 mg/dL (8.7-10.4); Carbon Dioxide 24 mmol/L (20-30); Chloride 108 mmol/L (98-107); Glucose 153 mg/dL (74-106); Magnesium 1.9 mg/dL (1.6-2.6); Sodium 138 mmol/L (136-145)
[2022-11-16 20:34] LABS: Bilirubin, Total 0.5 mg/dL (0.2-1.0); Total Protein 6.3 g/dL (5.7-8.2)
[2022-11-16 20:51] LABS: Beta HCG, Quantitative 0.2 mIU/mL (1.5-4.2)
[2022-11-16 20:56] LABS: BUN/Creatinine Ratio 7.5 (10.0-20.0); Blood Urea Nitrogen < 5 mg/dL (9-23)
[2022-11-16 20:58] LABS: Potassium 2.9 mmol/L (3.5-5.1)
[2022-11-16] MEDS ORDERED: POTASSIUM CHL 20 Meq TABLET PO ONE (21:15)
[2022-11-16] MEDS: METOCLOPRAMIDE HCL 5MG/ml INJ 2ml VIAL IV PRN (21:50)
[2022-11-17] MEDS: SUCRALFATE 1 GM TAB PO SCH ×5 (00:36→22:32)
[2022-11-17 05:00] VITALS: BP 107/65; PULSE 51; RESP 16; TEMP 98.2; O2SAT 99
[2022-11-17] MEDS: METOCLOPRAMIDE HCL 5MG/ml INJ 2ml VIAL IV PRN ×2 (05:46→22:32)
[2022-11-17] MEDS: HYDROcodone-ACET 5/325MG TAB PO PRN (05:46)
[2022-11-17] MEDS: SODIUM CHLORIDE 0.9% 1,000 ML IV SCH ×4 (05:54→23:30)
[2022-11-17 06:12] LABS: Alanine Aminotransferase 15 U/L (7-40); Albumin 3.8 g/dL (3.2-4.8); Alkaline Phosphatase 65 U/L (46-116); Anion Gap 5 (5-15); Aspartate Aminotransferase 12 U/L (13-40); Bilirubin, Total 0.4 mg/dL (0.2-1.0); Calcium 8.7 mg/dL (8.7-10.4); Carbon Dioxide 27 mmol/L (20-30); Chloride 108 mmol/L (98-107); Glucose 96 mg/dL (74-106); Potassium 3.4 mmol/L (3.5-5.1); Sodium 140 mmol/L (136-145); Total Protein 6.1 g/dL (5.7-8.2)
[2022-11-17 06:30] LABS: BUN/Creatinine Ratio 7.1 (10.0-20.0); Blood Urea Nitrogen < 5 mg/dL (9-23)
[2022-11-17 08:00] VITALS: BP 109/60; PULSE 55; RESP 20; TEMP 98.3; O2SAT 100
[2022-11-17] MEDS: PANTOPRAZOLE 40 MG TAB PO SCH (10:00)
[2022-11-17] MEDS: cefTRIAXone 1GM/50ML D5W 50 ML IV SCH (11:47)
[2022-11-17 12:00] VITALS: BP 113/72; PULSE 64; RESP 20; TEMP 98.1; O2SAT 97
[2022-11-17 16:00] VITALS: BP 116/76; PULSE 59; RESP 19; TEMP 98.6; O2SAT 99
[2022-11-17] MEDS ORDERED: POTASSIUM CHL 20 Meq TABLET PO ONE (17:00)
[2022-11-17 20:00] VITALS: RESP 20
[2022-11-17 22:00] VITALS: BP 117/82; PULSE 64; RESP 17; TEMP 98.4; O2SAT 96
[2022-11-18 05:00] VITALS: BP 123/80; PULSE 57; RESP 17; TEMP 98.4; O2SAT 98
[2022-11-18] MEDS: SUCRALFATE 1 GM TAB PO SCH ×2 (06:21→11:30)
[2022-11-18] MEDS: SODIUM CHLORIDE 0.9% 1,000 ML IV SCH (06:21)
[2022-11-18 08:00] VITALS: RESP 22
[2022-11-18] MEDS: METOCLOPRAMIDE HCL 5MG/ml INJ 2ml VIAL IV PRN (08:30)
[2022-11-18] MEDS: MORPHINE SULFATE INJ 2 MG/ml SYRG IV PRN (08:32)
[2022-11-18 09:00] VITALS: BP 121/86; PULSE 65; RESP 20; TEMP 98.4; O2SAT 98
[2022-11-18] MEDS: ONDANSETRON HCL 4 MG/2 ML VIAL IV PRN (09:16)
[2022-11-18] MEDS: cefTRIAXone 1GM/50ML D5W 50 ML IV SCH (09:16)
[2022-11-18] MEDS: PANTOPRAZOLE 40 MG TAB PO SCH (10:00)
[2022-11-18] MEDS ORDERED: LORazepam 2MG/ML-1ML VIAL IV PRN (10:30)
[2022-11-18] MEDS ORDERED: SUCR1TAB22 PO (11:25)
[2022-11-18] MEDS ORDERED: SIMETHICONE 80 MG CHEWABLE TABLET PO SCH (14:00)
[2022-11-18 14:20] VITALS: TEMP 36.9
[2022-11-19] MEDS ORDERED: FLUC200T PO (09:28)
== END 2022-11-18 15:00 | disposition home or self-care (01) | DRG 463 ==
LOC: ER 10:41 → EDBD 10:41 → OVERFLOW 15:29 → EAST 11-15 15:36
PROVIDERS: ADMIT Nurse Practitioner Family; ATTEND Internal Medicine
DX: N30.00 Acute cystitis without hematuria (principal); F12.90 Cannabis use, unspecified, uncomplicated; F14.90 Cocaine use, unspecified, uncomplicated; Z91.041 Radiographic dye allergy status; F19.10 Other psychoactive substance abuse, uncomplicated; Z76.5 Malingerer [conscious simulation]; K29.70 Gastritis, unspecified, without bleeding; I88.0 Nonspecific mesenteric lymphadenitis
CPT/HCPCS: 36415; 71046; 74018; 74176; 80053; 80307; 81001; 82150; 82962; 83605; 83690; 83735; 84443; 84484; 84702; 85025; 86677; 87040; 87045; 87086; 87426; 87427; 96361; 96374; 96375; G0378; J0696; J2405

== ENCOUNTER 2023-01-23 08:22 | Inpatient (IN) | payer MEDICAID ==
[~2023-01-23] VITALS: Ht 154.9 cm; Wt 107.0 kg
[~2023-01-23 08:22] MED LIST changes: +FLUC200T PO; +SUCR1TAB22 PO
[2023-01-23] MEDS ORDERED: SODIUM CHLORIDE 0.9% 1,000 ML IV ONE (09:00)
[2023-01-23] MEDS ORDERED: ONDANSETRON HCL 4 MG/2 ML VIAL IV ONE ×2 (09:00→23:15)
[2023-01-23 09:16] LABS: Basophils # (auto) 0.1 10 ^3/uL (0-0.2); Basophils % (auto) 0.4 % (0.0-2.0); Eosinophils # (auto) 0.1 10 ^3/uL (0-0.8); Eosinophils % (auto) 0.2 % (0.0-7.0); Hemoglobin 14.7 g/dL (12.2-16.2); Lymphocytes # (auto) 2.8 10 ^3/uL (0.4-5.4); Lymphocytes % (auto) 12.6 % (10.0-50.0); Mean Corpuscular Hemoglobin 28.3 pg (28.0-32.0); Mean Corpuscular Hgb Conc. 33.3 g/dL (32.0-36.0); Mean Corpuscular Volume 84.7 fL (80.0-100.0); Monocytes # (auto) 1.4 10 ^3/uL (0-1.3); Monocytes % (auto) 6.2 % (0.0-12.0); Neutrophils # (auto) 18.1 10 ^3/uL (1.6-8.6); Neutrophils % (auto) 80.6 % (37.0-80.0); Nucleated Red Blood Cells % 0.3 %; Red Cell Distribution Width 14.2 % (11.8-14.3); White Blood Cell 22.5 10^3/uL (4.4-10.8)
[2023-01-23 09:19] LABS: Urine Bacteria NONE SEEN /hpf (None Seen); Urine Blood Negative /uL (Negative); Urine Clarity Clear (Clear); Urine Color Yellow (Yellow); Urine Mucus FEW (None Seen); Urine Protein, UAD 1+ (Negative); Urine Specific Gravity 1.035 (1.001-1.035); Urine WBC 2 /hpf (0 - 5)
[2023-01-23 09:31] LABS: Amphetamine Screen, Urine Neg (NEGATIVE); Barbiturate Scree,Urine Neg (NEGATIVE); Cocaine Screen, Urine Neg (NEGATIVE); Opiate Scree,Urine Neg (NEGATIVE); Phencyclidine Screen, Urine Neg (NEGATIVE)
[2023-01-23 09:32] LABS: Benzodiazephine Screen, Urine Neg (NEGATIVE); Cannabinoid Screen, Urine Pos (NEGATIVE)
[2023-01-23 09:34] LABS: Alanine Aminotransferase 15 U/L (7-40); Alkaline Phosphatase 77 U/L (46-116); Calcium 9.4 mg/dL (8.7-10.4)
[2023-01-23 09:35] LABS: Albumin 4.8 g/dL (3.2-4.8); Anion Gap 11 (5-15); Aspartate Aminotransferase 25 U/L (13-40); BUN/Creatinine Ratio 8.8 (10.0-20.0); Bilirubin, Total 1.1 mg/dL (0.2-1.0); Blood Urea Nitrogen 7 mg/dL (9-23); Carbon Dioxide 21 mmol/L (20-30); Chloride 105 mmol/L (98-107); Glucose 131 mg/dL (74-106); Lipase 29 U/L (12-53); Potassium 3.9 mmol/L (3.5-5.1); Sodium 137 mmol/L (136-145); Total Protein 7.8 g/dL (5.7-8.2)
[2023-01-23 09:40] LABS: INR 1.11 (0.9-1.15); Prothrombin Time 11.6 sec (9.3-11.8)
[2023-01-23 10:00] LABS: Bilirubin, Direct 0.3 mg/dL (<0.3)
[2023-01-23] MEDS ORDERED: CEFTRIAXONE SODIUM 2 GM in D5W 5% 100 ML IV ONE (10:00)
[2023-01-23 10:31] LABS: Magnesium 1.8 mg/dL (1.6-2.6)
[2023-01-23] MEDS ORDERED: ACETAMINOPHEN 325 MG TAB PO PRN (11:00)
[2023-01-23] MEDS ORDERED: PANTOPRAZOLE 40 MG/10 ML VIAL INJ IV ONE (11:00)
[2023-01-23] MEDS ORDERED: DICYCLOMINE HCL 10 MG CAP PO ONE (11:15)
[2023-01-23] MEDS: SODIUM CHLORIDE 0.9% 1,000 ML IV SCH ×2 (11:19→19:49)
[2023-01-23] MEDS: SUCRALFATE 1 GM TAB PO SCH ×3 (12:00→22:14)
[2023-01-23 12:38] VITALS: PULSE 66
[2023-01-23 12:39] VITALS: RESP 22; O2SAT 100
[2023-01-23] MEDS: MAGNESIUM SULFATE 1GM/100ML 100 ML IV SCH ×2 (13:00→13:31)
[2023-01-23] MEDS: MORPHINE SULFATE INJ 2 MG/ml SYRG IV PRN (16:04)
[2023-01-23] MEDS: METOCLOPRAMIDE HCL 5MG/ml INJ 2ml VIAL IV PRN ×2 (16:04→23:41)
[2023-01-23] MEDS: ONDANSETRON HCL 4 MG/2 ML VIAL IV PRN (19:48)
[2023-01-23 22:00] VITALS: PULSE 68; RESP 13; O2SAT 99
[2023-01-23] MEDS ORDERED: LORazepam 2MG/ML-1ML VIAL IV ONE (23:15)
[2023-01-23] MEDS ORDERED: diphenhdrAMINE HCL 50 MG/1 ML VL IV ONE (23:15)
[2023-01-24] MEDS: SODIUM CHLORIDE 0.9% 1,000 ML IV SCH ×4 (03:40→21:59)
[2023-01-24 05:04] LABS: Basophils # (auto) 0 10 ^3/uL (0-0.2); Basophils % (auto) 0.2 % (0.0-2.0); Eosinophils # (auto) 0.1 10 ^3/uL (0-0.8); Eosinophils % (auto) 0.5 % (0.0-7.0); Hematocrit 35.2 % (36.0-46.0); Hemoglobin 11.8 g/dL (12.2-16.2); Lymphocytes # (auto) 2.7 10 ^3/uL (0.4-5.4); Mean Corpuscular Hgb Conc. 33.4 g/dL (32.0-36.0); Mean Corpuscular Volume 83.9 fL (80.0-100.0); Monocytes # (auto) 1.2 10 ^3/uL (0-1.3); Monocytes % (auto) 10.3 % (0.0-12.0); Neutrophils # (auto) 7.3 10 ^3/uL (1.6-8.6); Nucleated Red Blood Cells % 0.1 %; Red Cell Distribution Width 14.3 % (11.8-14.3); White Blood Cell 11.3 10^3/uL (4.4-10.8)
[2023-01-24 05:18] LABS: Alanine Aminotransferase 12 U/L (7-40); Albumin 3.9 g/dL (3.2-4.8); Alkaline Phosphatase 62 U/L (46-116); Anion Gap 7 (5-15); Aspartate Aminotransferase 11 U/L (13-40); BUN/Creatinine Ratio 9.1 (10.0-20.0); Bilirubin, Total 0.6 mg/dL (0.2-1.0); Blood Urea Nitrogen < 5 mg/dL (9-23); Calcium 8.1 mg/dL (8.7-10.4); Carbon Dioxide 23 mmol/L (20-30); Chloride 108 mmol/L (98-107); Glucose 107 mg/dL (74-106); Potassium 3.2 mmol/L (3.5-5.1); Sodium 138 mmol/L (136-145); Total Protein 6.1 g/dL (5.7-8.2)
[2023-01-24] MEDS: SUCRALFATE 1 GM TAB PO SCH ×4 (07:06→21:59)
[2023-01-24] MEDS: METOCLOPRAMIDE HCL 5MG/ml INJ 2ml VIAL IV PRN (07:44)
[2023-01-24 07:45] VITALS: O2SAT 99
[2023-01-24] MEDS: ONDANSETRON HCL 4 MG/2 ML VIAL IV PRN ×3 (08:25→21:07)
[2023-01-24] MEDS: MORPHINE SULFATE INJ 2 MG/ml SYRG IV PRN ×2 (08:27→14:55)
[2023-01-24] MEDS ORDERED: PROMETHAZINE HCL 25 MG/ML 1ML IV PRN (08:45)
[2023-01-24] MEDS: cefTRIAXone 1GM/50ML D5W 50 ML IV SCH (09:17)
[2023-01-24] MEDS ORDERED: PANTOPRAZOLE 40 MG/10 ML VIAL INJ IV SCH (10:00)
[2023-01-24 11:32] VITALS: BP 119/76; PULSE 69; RESP 18; TEMP 98.6; O2SAT 93
[2023-01-24 12:42] VITALS: BP 119/76; PULSE 54; RESP 18; TEMP 98.6; O2SAT 98
[2023-01-24 16:37] VITALS: BP 115/71; PULSE 55; RESP 18; RESP 19; TEMP 98.6; O2SAT 98
[2023-01-24 17:04] VITALS: BP 101/64; PULSE 57; RESP 18; TEMP 98.1; O2SAT 97
[2023-01-24] MEDS: PANTOPRAZOLE 40 MG/10 ML VIAL INJ IV SCH (21:54)
[2023-01-24 22:00] VITALS: BP 108/64; PULSE 59; RESP 16; TEMP 97.8; O2SAT 98
[2023-01-25] VITALS (7 sets, daily range): BP systolic 106–139; BP diastolic 62–85; PULSE 47–68; RESP 11–20; TEMP 98–98.8; O2SAT 95–100
[2023-01-25] MEDS: SODIUM CHLORIDE 0.9% 1,000 ML IV SCH (03:30)
[2023-01-25] MEDS: METOCLOPRAMIDE HCL 5MG/ml INJ 2ml VIAL IV PRN (05:36)
[2023-01-25] MEDS: MORPHINE SULFATE INJ 2 MG/ml SYRG IV PRN ×3 (05:37→23:08)
[2023-01-25] MEDS: SUCRALFATE 1 GM TAB PO SCH ×2 (06:00→11:21)
[2023-01-25 07:22] LABS: Anion Gap 8 (5-15); Carbon Dioxide 21 mmol/L (20-30); Chloride 107 mmol/L (98-107); Potassium 3.3 mmol/L (3.5-5.1); Sodium 136 mmol/L (136-145)
[2023-01-25 07:23] LABS: Calcium 8.6 mg/dL (8.7-10.4)
[2023-01-25 07:24] LABS: Basophils # (auto) 0 10 ^3/uL (0-0.2); Basophils % (auto) 0.3 % (0.0-2.0); Eosinophils # (auto) 0.1 10 ^3/uL (0-0.8); Eosinophils % (auto) 0.5 % (0.0-7.0); Hematocrit 35.8 % (36.0-46.0); Lymphocytes # (auto) 2.7 10 ^3/uL (0.4-5.4); Lymphocytes % (auto) 20.5 % (10.0-50.0); Mean Corpuscular Hemoglobin 28.2 pg (28.0-32.0); Mean Corpuscular Hgb Conc. 33.6 g/dL (32.0-36.0); Mean Corpuscular Volume 83.8 fL (80.0-100.0); Monocytes % (auto) 7.6 % (0.0-12.0); Neutrophils # (auto) 9.4 10 ^3/uL (1.6-8.6); Neutrophils % (auto) 71.1 % (37.0-80.0); Red Blood Cells 4.28 10^6/uL (4.0-5.20); Red Cell Distribution Width 14.1 % (11.8-14.3); White Blood Cell 13.2 10^3/uL (4.4-10.8)
[2023-01-25 07:28] LABS: Glucose 89 mg/dL (74-106)
[2023-01-25 07:32] LABS: BUN/Creatinine Ratio 7.4 (10.0-20.0); Blood Urea Nitrogen < 5 mg/dL (9-23)
[2023-01-25] MEDS ORDERED: PROMETHAZINE HCL 25 MG/ML 1ML IV ONE (08:30)
[2023-01-25] MEDS: PROMETHAZINE HCL 25 MG/ML 1ML IV PRN ×3 (08:35→22:53)
[2023-01-25] MEDS: PANTOPRAZOLE 40 MG/10 ML VIAL INJ IV SCH ×2 (08:44→21:10)
[2023-01-25] MEDS: SOD CHL 0.9%/ KCL 40MEQ 1,000 ML IV SCH (09:30)
[2023-01-25] MEDS: cefTRIAXone 1GM/50ML D5W 50 ML IV SCH (09:30)
[2023-01-25] MEDS: ONDANSETRON HCL 4 MG/2 ML VIAL IV PRN (13:29)
[2023-01-25] MEDS ORDERED: fentaNYL CITRATE 100 MCG/2 ML VL ONE (13:55)
[2023-01-25] MEDS ORDERED: PROPOFOL 10 MG/ML 20 ML IV ONE (13:56)
[2023-01-25] MEDS ORDERED: ONDANSETRON HCL 4 MG/2 ML VIAL IV PRN (14:30)
[2023-01-25] MEDS ORDERED: MEPERIDINE HCL (25 MG/ML) 1ML VIAL IV PRN (14:30)
[2023-01-25] MEDS ORDERED: METOCLOPRAMIDE HCL 5MG/ml INJ 2ml VIAL IV PRN (14:30)
[2023-01-25] MEDS ORDERED: HYDROmorphone HCL 2 MG/ML VL/or syr IV PRN (14:30)
[2023-01-25] MEDS: SUCRALFATE 1 GM/10 ML ORAL SUSP PO SCH ×2 (16:36→21:10)
[2023-01-26] MEDS: SOD CHL 0.9%/ KCL 40MEQ 1,000 ML IV SCH ×2 (00:07→05:15)
[2023-01-26 05:00] VITALS: BP 108/60; PULSE 60; RESP 15; TEMP 97.8; O2SAT 96
[2023-01-26] MEDS: PROMETHAZINE HCL 25 MG/ML 1ML IV PRN ×2 (06:06→12:15)
[2023-01-26] MEDS: SUCRALFATE 1 GM/10 ML ORAL SUSP PO SCH ×2 (06:06→12:10)
[2023-01-26] MEDS: MORPHINE SULFATE INJ 2 MG/ml SYRG IV PRN ×2 (06:17→12:08)
[2023-01-26 07:02] LABS: Basophils # (auto) 0 10 ^3/uL (0-0.2); Basophils % (auto) 0.3 % (0.0-2.0); Eosinophils # (auto) 0.1 10 ^3/uL (0-0.8); Eosinophils % (auto) 1.1 % (0.0-7.0); Hematocrit 36.3 % (36.0-46.0); Hemoglobin 12.3 g/dL (12.2-16.2); Lymphocytes # (auto) 3.4 10 ^3/uL (0.4-5.4); Lymphocytes % (auto) 36.7 % (10.0-50.0); Mean Corpuscular Hemoglobin 29.2 pg (28.0-32.0); Mean Corpuscular Volume 85.8 fL (80.0-100.0); Monocytes % (auto) 10.4 % (0.0-12.0); Neutrophils # (auto) 4.7 10 ^3/uL (1.6-8.6); Neutrophils % (auto) 51.5 % (37.0-80.0); Red Blood Cells 4.22 10^6/uL (4.0-5.20); Red Cell Distribution Width 14.6 % (11.8-14.3); White Blood Cell 9.2 10^3/uL (4.4-10.8)
[2023-01-26 07:21] LABS: Alanine Aminotransferase 11 U/L (7-40); Albumin 3.8 g/dL (3.2-4.8); Alkaline Phosphatase 61 U/L (46-116); Anion Gap 7 (5-15); Aspartate Aminotransferase 12 U/L (13-40); Bilirubin, Total 0.4 mg/dL (0.2-1.0); Calcium 8.9 mg/dL (8.5-10.1); Carbon Dioxide 22 mmol/L (20-30); Chloride 110 mmol/L (98-107); Glucose 85 mg/dL (74-106); Potassium 3.9 mmol/L (3.5-5.1); Sodium 139 mmol/L (136-145); Total Protein 6.1 g/dL (5.7-8.2)
[2023-01-26 07:25] LABS: BUN/Creatinine Ratio 7.9 (10.0-20.0); Blood Urea Nitrogen < 5 mg/dL (9-23)
[2023-01-26 08:00] VITALS: PULSE 74; RESP 18; O2SAT 99
[2023-01-26 09:00] VITALS: BP 110/76; PULSE 74; RESP 18; TEMP 97.9; O2SAT 99
[2023-01-26] MEDS: cefTRIAXone 1GM/50ML D5W 50 ML IV SCH (09:27)
[2023-01-26] MEDS: PANTOPRAZOLE 40 MG/10 ML VIAL INJ IV SCH (09:31)
[2023-01-26 13:00] VITALS: BP 105/64; PULSE 69; RESP 20; TEMP 98.8; O2SAT 99
[2023-01-26] MEDS ORDERED: ZOFR4T PO (13:37)
[2023-01-26] MEDS ORDERED: SUCR1TAB22 PO (13:37)
[2023-01-26] MEDS ORDERED: PANT40TA2 PO (13:37)
[2023-01-26 15:26] VITALS: BP 110/76; PULSE 79; RESP 18; TEMP 97.9; O2SAT 99
== END 2023-01-26 17:19 | disposition home or self-care (01) | DRG 241 ==
LOC: ER 08:22 → OVERFLOW 10:57 → WEST WING 01-24 11:39
PROVIDERS: ADMIT Nurse Practitioner Family; ATTEND Nurse Practitioner Acute Care
PROC: 0DB78ZX Excision of Stomach, Pylorus, Via Natural or Artificial Opening Endoscopic, Diagnostic (ICD-10-PCS; 2023-01-25)
PROC: 0DB48ZX Excision of Esophagogastric Junction, Via Natural or Artificial Opening Endoscopic, Diagnostic (ICD-10-PCS; 2023-01-25)
PROC: 0DB98ZX Excision of Duodenum, Via Natural or Artificial Opening Endoscopic, Diagnostic (ICD-10-PCS; principal; 2023-01-25 13:59)
DX: K29.71 Gastritis, unspecified, with bleeding (principal); K76.0 Fatty (change of) liver, not elsewhere classified; D62 Acute posthemorrhagic anemia; R65.10 Systemic inflammatory response syndrome (SIRS) of non-infectious origin without acute organ dysfunction; K31.3 Pylorospasm, not elsewhere classified; K44.9 Diaphragmatic hernia without obstruction or gangrene; E66.9 Obesity, unspecified; N30.00 Acute cystitis without hematuria; E83.42 Hypomagnesemia; Z91.041 Radiographic dye allergy status; Z79.899 Other long term (current) drug therapy; Z83.3 Family history of diabetes mellitus; Z81.8 Family history of other mental and behavioral disorders; Z68.39 Body mass index [BMI] 39.0-39.9, adult
CPT/HCPCS: 36415; 43239; 71045; 74176; 76705; 80048; 80053; 80307; 80320; 81001; 81025; 82248; 82270; 83690; 83735; 84702; 85025; 85610; 86850; 86900; 86901; 87086; C9113; G0378; J0696; J2405; J2704; J7060

== ENCOUNTER 2023-07-18 13:19 | Emergency (ER) | payer MEDICAID ==
[~2023-07-18] VITALS: Ht 162.6 cm; Wt 94.5 kg
[~2023-07-18 13:19] MED LIST changes: -CEPH250C PO; -FLUC200T PO; -SUCR1TAB22 PO; +SUCR1TAB31 PO; +ZOFR4T PO
[2023-07-18] MEDS ORDERED: METO-281 PO (15:07)
[2023-07-18 17:16] VITALS: BP 122/86; PULSE 92; RESP 16; TEMP 98.7; O2SAT 98
== END 2023-07-18 17:18 | disposition home or self-care (01) ==
LOC: ER 13:19
DX: K04.7 Periapical abscess without sinus (principal); F15.90 Other stimulant use, unspecified, uncomplicated; Z91.041 Radiographic dye allergy status; Z79.899 Other long term (current) drug therapy

== ENCOUNTER 2023-10-09 05:18 | Emergency (ER) | payer MEDICAID ==
[~2023-10-09] VITALS: Ht 165.1 cm; Wt 97.6 kg
[~2023-10-09 05:18] MED LIST changes: +METO-281 PO
[2023-10-09 05:23] VITALS: BP 113/61; TEMP 99.4
[2023-10-09 06:09] VITALS: PULSE 84; RESP 20; O2SAT 96
[2023-10-09] MEDS: CLINDAMYCIN HCL 150 MG CAP PO ONE (06:25)
[2023-10-09] MEDS: HYDROcodone-ACET 10/325MG TAB PO ONE (06:25)
[2023-10-09] MEDS ORDERED: CLIN150C PO (06:27)
[2023-10-09] MEDS ORDERED: HYDR-4902 PO (06:27)
== END 2023-10-09 06:51 | disposition home or self-care (01) ==
LOC: ER 05:18
DX: K02.9 Dental caries, unspecified (principal); F15.90 Other stimulant use, unspecified, uncomplicated; Z91.041 Radiographic dye allergy status; Z79.899 Other long term (current) drug therapy

== ENCOUNTER 2023-10-10 17:16 | Emergency (ER) | payer MEDICAID ==
[~2023-10-10] VITALS: Ht 165.1 cm; Wt 90.9 kg
[~2023-10-10 17:16] MED LIST changes: +CLIN150C PO; +HYDR-4902 PO
[2023-10-10 17:22] VITALS: BP 128/88; PULSE 165; RESP 18; O2SAT 96
[2023-10-10 18:53] LABS: Basophils # (auto) 0.1 10 ^3/uL (0-0.2); Basophils % (auto) 0.4 % (0.0-2.0); Eosinophils # (auto) 0 10 ^3/uL (0-0.8); Hematocrit 41.2 % (36.0-46.0); Hemoglobin 13.7 g/dL (12.2-16.2); Lymphocytes # (auto) 2.1 10 ^3/uL (0.4-5.4); Lymphocytes % (auto) 13.7 % (10.0-50.0); Mean Corpuscular Hemoglobin 28.8 pg (28.0-32.0); Mean Corpuscular Hgb Conc. 33.3 g/dL (32.0-36.0); Mean Corpuscular Volume 86.4 fL (80.0-100.0); Monocytes # (auto) 0.8 10 ^3/uL (0-1.3); Monocytes % (auto) 4.9 % (0.0-12.0); Neutrophils # (auto) 12.6 10 ^3/uL (1.6-8.6); Platelet Count (auto) 273 10^3/uL (140-450); Red Blood Cells 4.77 10^6/uL (4.0-5.20); Red Cell Distribution Width 14.1 % (11.8-14.3); White Blood Cell 15.6 10^3/uL (4.4-10.8)
[2023-10-10 19:14] LABS: Alanine Aminotransferase 14 U/L (7-40); Alkaline Phosphatase 70 U/L (46-116); Calcium 9.4 mg/dL (8.7-10.4); Carbon Dioxide 17 mmol/L (20-30); Chloride 109 mmol/L (98-107)
[2023-10-10 19:15] LABS: Albumin 4.6 g/dL (3.2-4.8); Anion Gap 12 (5-15); Aspartate Aminotransferase 16 U/L (13-40); BUN/Creatinine Ratio 9.1 (10.0-20.0); Bilirubin, Total 0.7 mg/dL (0.2-1.0); Blood Urea Nitrogen 7 mg/dL (9-23); Glucose 112 mg/dL (74-106); Lipase 28 U/L (12-53); Potassium 3.6 mmol/L (3.5-5.1); Sodium 138 mmol/L (136-145)
[2023-10-10 19:16] LABS: Total Protein 7.8 g/dL (5.7-8.2)
== END 2023-10-10 20:42 | disposition left against medical advice (07) ==
LOC: ER 17:16 → EDBD 17:16 → ER 20:42
DX: R10.9 Unspecified abdominal pain (principal); R10.2 Pelvic and perineal pain; R11.2 Nausea with vomiting, unspecified; Z53.21 Procedure and treatment not carried out due to patient leaving prior to being seen by health care provider
CPT/HCPCS: 36415; 80053; 83605; 83690; 84702; 85025

== ENCOUNTER 2024-09-18 18:12 | Inpatient (IN) | payer MEDICAID, OTHER ==
[~2024-09-18] VITALS: Ht 162.6 cm; Wt 108.1 kg
--- NOTE | 2024-09-18 18:35 | ED.PDOC ---
GI ASSESSMENT HPI Comments 29 year old female presents to the ED with a chief complaint of nausea/vomiting onset today. Patient states she had a coffee from gas station and since then has been experiencing diffused abdominal pain described as cramping sensation, bloating sensation, nausea, vomiting, generalized weakness, sweats, chills, poor appetite, poor fluid intake. Patient states she has no PMHx of seizures, experienced 2 seizure episodes today, one in shower and one in route to ED, witnessed by sister. Patient states she does not recall events, sister states patient tenses up, becomes weak. PMHx anxiety. No other associated symptoms, modifiers, recent injuries or sick contacts present at this time. Chief Complaint: Seizure Time Seen by MD: 18:25 Primary Care Provider: [facility] Reviewed Notes: Medications, Allergies Allergies: Coded Allergies: Iodine (Verified Allergy, Unknown, 07/20/22) Uncoded Allergies: IV CONTRAST (Allergy, Unknown, 09/19/20) Home Meds Active Scripts Hydrocodone-Acetaminophen (Hydrocodone Bitartrate/AC 5-325 mg) 1 Tab Tab, 1 TAB PO Q8HP PRN for 5 Days, #15 TAB Prov:TAIWO BINGHAM MD 10/09/23 Clindamycin Hcl (CLEOCIN) 150 Mg Cap, 1 CAP PO TID, #30 CAP Prov:TAIWO BINGHAM MD 10/09/23 Metoclopramide Hcl (Reglan) 10 Mg Tab, 10 MG PO TIDPRN PRN for 10 Days, #30 TAB Prov:ERIK SESAY DO 07/18/23 Pantoprazole Sodium Sesquihydr (Protonix) 40 Mg Tab, 40 MG PO DAILY, #30 TAB Prov:TAIWO BINGHAM MD 07/16/23 Ondansetron Odt 4MG Tab (ZOFRAN PO) 4 Mg Tb, 4 MG PO Q8HP PRN for 6 Days, #18 TAB ODT TAB-DISSOLVE IN MOUTH, THEN SWALLOW Prov:TAIWO BINGHAM MD 07/16/23 Ondansetron Odt 4MG Tab (ZOFRAN PO) 4 Mg Tb, 4 MG PO Q6HP PRN for 5 Days, #15 TAB ODT TAB-DISSOLVE IN MOUTH, THEN SWALLOW Prov:AYDEN ARGUETA NP 01/26/23 Sucralfate (CARAFATE) 1 Gm Tab, 1 GM PO QID for 30 Days, #120 TAB 3 Refills Prov:AYDEN ARGUETA [employer]ER 01/26/23 Pantoprazole Sodium Sesquihydr (Protonix) 40 Mg Tab, 40 MG PO BID for 30 Days, #60 TAB Prov:AYDEN ARGUETA [employer]ER 01/26/23 Prednisone (Prednisone) 20 Mg Tab, 60 MG PO DAILY for 7 Days, #21 MG Prov:AYSE MIRANDA DO 07/19/22 Dicyclomine Hcl (BENTYL CAPSULE) 10 Mg Cp, 2 CAP PO Q6HPRN, #40 CAP 3 Refills Prov:AYSE MIRANDA DO 07/19/22 Ondansetron (Zofran) 4 Mg Tab, 4 MG PO Q6HPRN PRN, #30 MG Prov:AYSE MIRANDA DO 07/19/22 Information Source: Patient, Relative (Sibling) Mode of Arrival: Ambulatory Timing: Hours Duration: Since onset Prehospital treatment: None Quality: Cramping, Sharp Severity: Moderate Recent: None Recent Hx of: None Pain Location: Diffuse Modifying Factors: Nothing Associated sign and symptoms: Nausea, Vomiting, Hematemesis, Abdominal Pain Past Medical History PAST MEDICAL HISTORY: Anxiety Surgical History: Denies all surgeries MOBILE DISC JOCKEY History: No Pertinent MOBILE DISC JOCKEY History Family History Family History: Family hx of DM, Family hx of Cancer, Family hx of heart anita, Family hx of Kidney anita Social History Smoker: Non-Smoker Alcohol: Denies ETOH Use Drugs: Marijuana Lives In: Home Constitutional: reports: chills, sweats, weakness; denies: diaphoresis, fatigue, fever, malaise, others EENTM: denies: blurred vision, double vision, ear bleeding, ear discharge, ear drainage, ear pain, ear ringing, eye pain, eye redness, hearing loss, mouth pain, mouth swelling, nasal discharge, nose bleeding, nose congestion, nose pain, photophobia, tearing, throat pain, throat swelling, voice changes, others Respiratory: denies: cough, hemoptysis, orthopnea, SOB at rest, shortness of breath, SOB with excertion, stridor, wheezing, others Cardiovascular: denies: chest pain, dizzy spells, diaphoresis, Dyspnea on exertion, edema, irregular heart beat, left arm pain, lightheadedness, palpitations, PND, syncope, others Gastrointestinal: reports: abdomen distended, abdominal pain, hematemesis, nausea, poor appetite, vomiting; denies: blood streaked bowels, constipated, diarrhea, dysphagia, difficulty swallowing, melena, poor fluid intake, rectal bleeding, rectal pain, others Genitourinary: denies: abnormal vagina bleeding, burning, dyspareunia, dysuria, flank pain, frequency, hematuria, incontinence, pain, , vagina discharge, urgency, others Neurological: reports: seizure; denies: dizziness, fainting, headache, left sided numbness, left sided weakness, numbness, paresthesia, pre-existing deficit, right sided numbness, right sided weakness, speech problems, tingling, tremors, weakness, others Musculoskeletal: reports: back pain (low back); denies: gout, joint pain, joint swelling, muscle pain, muscle stiffness, neck pain, others Integumetry: denies: bruises, change in color, change in hair/nails, dryness, laceration, lesions, lumps, rash, wounds, others Allergic/Immunocompromised: denies: Difficulty Healing, Frequent Infections, Hives, Itching, others Hematologic/Lymphatic: denies: anemia, blood clots, easy bleeding, easy bruising, swollen glands, others Endocrine: denies: excessive hunger, excessive sweating, excessive thirst, excessive urination, flushing, intolerance to cold, intolerance to heat, unexplained weight gain, unexplained weight loss, others Psychiatric: denies: anxiety, bipolar disorder, depression, hopeless, panic disorder, schizophrenia, sleepless, suicidal, others All Other Systems: Reviewed and Negative Physical Exam General Appearance: Normal HEENT: Normal ENT Inspection, Pharynx Normal, TMs Normal Neck: Full Range of Motion, Non-Tender, Normal, Normal Inspection Respiratory: Chest Non-Tender, Lungs Clear, No Accessory Muscle Use, No Respiratory Distress, Normal Breath Sounds Cardiovascular: No Edema, No JVD, No Murmur, No Gallop, Normal Peripheral Pulses, Regular Rate/Rhythm Breast Exam: Deferred Gastrointestinal: No Organomegaly, Non Tender, No Pulsatile Mass, Normal Bowel Sounds, Soft Genitalia: Deferred Pelvic: Deferred Rectal: Deferred Extremities: No calf tenderness, Normal capillary refill, Normal inspection, Normal range of motion, Non-tender, No pedal edema Musculoskeletal : Apperance: Normal Neurologic: Alert, radiology supervisor II-XII nml as Tested, No Motor Deficits, Normal Affect, Normal Mood, No Sensory Deficits Cerebellar Function: Normal Reflexes: Normal Skin: Dry, Normal Color, Warm Lymphatic: No Adenopathy Was a procedure done? Was a procedure done?: No GI differential Dx Differential Diagnosis: Appendicitis, Bowel Obstruction, Constipation, Diverticular disease, Gastritis/PUD, Gastroenteritis, Dehydration, Electrolyte Imbalance, Food Poisoning, Other X-Ray, Labs, Meds, VS Vital Signs Date Time Temp Pulse Resp B/P (MAP) Pulse Ox O2 Delivery O2 Flow Rate FiO2 09/18/24 21:30 65 17 109/61 (77) 95 09/18/24 20:00 66 09/18/24 19:30 98.9 72 14 106/64 (78) 100 98.9 09/18/24 19:30 72 14 100 Room Air* 0 21 09/18/24 19:21 66 20 106/64 09/18/24 18:51 68 16 117/62 09/18/24 18:30 98.6 68 16 117/62 (80) 99 98.6 09/18/24 18:15 98.6 69 16 99 98.6 Lab Test 09/18/24 21:55 09/18/24 18:39 Range/Units Urine Color Light-yellow Yellow Urine Clarity Clear Clear Urine pH 8.0 5.0-9.0 Urine Specific [place] 1.022 1.001-1.035 Urine Protein Negative Negative Urine Ketones 3+ H Negative Urine Blood Negative Negative /uL Urine Nitrite Negative Negative Urine Bilirubin Negative Negative Urine Urobilinogen Normal Negative mg/dL Urine Leukocyte Esterase Negative Negative /uL Urine RBC 1 0 - 4 /hpf Urine Microscopic WBC 1 0-5 /HPF Urine Squamous Epithelial Cells Few <5 /hpf Urine Bacteria None seen None Seen /hpf Urine Mucus Few None Seen Urine Glucose Normal Normal mg/dL White Blood Count 13.4 H 4.4-10.8 10^3/uL Red Blood Count 4.62 4.0-5.20 10^6/uL Hemoglobin 13.6 12.2-16.2 g/dL Hematocrit 39.2 36.0-46.0 % Mean Corpuscular Volume 84.9 80.0-100.0 fL Mean Corpuscular Hemoglobin 29.5 28.0-32.0 pg Mean Corpuscular Hemoglobin Concent 34.7 32.0-36.0 g/dL Red Cell Distribution Width 14.1 11.8-14.3 % Platelet Count 260 140-450 10^3/uL Mean Platelet Volume 10.0 6.9-10.8 fL Neutrophils (%) (Auto) 68.1 37.0-80.0 % Lymphocytes (%) (Auto) 23.1 10.0-50.0 % Monocytes (%) (Auto) 6.7 0.0-12.0 % Eosinophils (%) (Auto) 1.0 0.0-7.0 % Basophils (%) (Auto) 1.1 0.0-2.0 % Neutrophils # (Auto) 9.1 H 1.6-8.6 10 ^3/uL Lymphocytes # (Auto) 3.1 0.4-5.4 10 ^3/uL Monocytes # (Auto) 0.9 0-1.3 10 ^3/uL Eosinophils # (Auto) 0.1 0-0.8 10 ^3/uL Basophils # (Auto) 0.2 0-0.2 10 ^3/uL Nucleated Red Blood Cells 0.1 % Sodium Level 140 136-145 mmol/L Potassium Level 3.4 L 3.5-5.1 mmol/L Chloride Level 107 98-107 mmol/L Carbon Dioxide Level 21 20-31 mmol/L Anion Gap 12 5-15 Blood Urea Nitrogen 7 L 9-23 mg/dL Creatinine 0.68 0.550-1.02 mg/dL Glomerular Filtration Rate Calc 120 >90 mL/min BUN/Creatinine Ratio 10.3 10.0-20.0 Serum Glucose 99 74-106 mg/dL Calcium Level 9.2 8.7-10.4 mg/dL Magnesium Level 1.7 1.6-2.6 mg/dL Total Bilirubin 0.5 0.2-1.0 mg/dL Aspartate Amino Transferase (AST) 17 13-40 U/L Alanine Aminotransferase (ALT) 13 7-40 U/L Alkaline Phosphatase 76 46-116 U/L Total Protein 7.1 5.7-8.2 g/dL Albumin 4.7 3.2-4.8 g/dL Lipase 32 12-53 U/L Beta HCG, Quantitative 0.4 L 1.5-4.2 mIU/mL Current Medications Medications (Trade) Dose Ordered Sig/Cat Route Start Time Stop Time Status Last Admin Ondansetron HCl (Zofran) 4 mg ONCE ONCE IV 09/18/24 18:30 09/18/24 18:31 DC 09/18/24 18:43 Hydromorphone HCl (Dilaudid Injection) 1 mg ONCE ONCE IV 09/18/24 18:30 09/18/24 18:31 DC 09/18/24 18:51 Sodium Chloride 1,000 ml @ 1,000 mls/hr Q1H ONCE IVB 09/18/24 18:30 09/18/24 19:29 DC 09/18/24 18:41 Ketorolac Tromethamine (Toradol Injection) 15 mg ONCE STAT IV 09/18/24 21:09 09/18/24 21:12 DC 09/18/24 21:23 Ondansetron HCl (Zofran) 4 mg ONCE STAT IV 09/18/24 21:09 09/18/24 21:12 DC 09/18/24 21:24 Meclizine HCl (Antivert Tablet) 25 mg ONCE STAT PO 09/18/24 21:17 09/18/24 21:19 DC 09/18/24 22:07 Prochlorperazine Edisylate (Compazine Inj) 10 mg ONCE STAT IV 09/18/24 21:46 09/18/24 21:48 DC 09/18/24 21:50 [place] [id number] Ph: [phone] DIAGNOSTIC IMAGING Diagnostic Imaging Report : [id number] Signed PATIENT: CLARIBEL MA ACCT: [id number] UNIT: [id number] : 1995 LOC: ER ROOM / BED: / AGE / SEX: 29 / F ADM STATUS: REG ER SERVICE [id number] ORDERING PHYSICIAN: PAMELA GÓMEZ MD PROCEDURE(s): ABPL - CT AB PEL WO CON-NO ORAL OR IV REASON: abd pain ORDER NUMBER(s): [id number], ACCESSION NUMBER(s): [id number] Exam: CT CT AB PEL WO CON-NO ORAL OR IV History: abd pain Comparison Study: CT CT AB PEL WO CON-NO ORAL OR IV on DOS: 01/23/23, CT CT AB PEL WO CON-NO ORAL OR IV on DOS: 11/14/22, CT CT AB PEL WO CON-NO ORAL OR IV on DOS: 08/08/22, CT ABD PELVIS WO CONTRAST on DOS: 10/11/21, CT ABD PELVIS WO CONTRAST on DOS: 09/19/20 TECHNIQUE: Multidetector CT of the abdomen and pelvis was performed from lung bases to pubic symphysis. Imaging was performed without IV contrast. Axial, coronal, and sagittal multiplanar reformats were obtained from the axial data set by the technologist. RADIATION DOSE: CTDI vol 22.17 mGy. DLP 1397.7 mGy.cm Findings: Limited evaluation of the solid organs in the absence of IV contrast. Evaluation is degraded by motion artifact. Liver: Unremarkable. Spleen: Unremarkable. Pancreas: Unremarkable. Gallbladder: Unremarkable. Adrenals: Unremarkable Kidneys: Unremarkable. Pelvic Viscera: Unremarkable. Vasculature: Unremarkable. Retroperitoneum: Unremarkable. Bowel: No bowel obstruction. The appendix is normal. Musculoskeletal: Unremarkable. Soft tissues: Unremarkable Lungs: The lung bases are clear. Impression: 1. Motion degraded evaluation without acute abdominopelvic abnormality identified. ATED BY: DELPHINE OLIVERA MD DICTATED DATE/TIME: 09/18/242124 SIGNED BY: DELPHINE OLIVERA MD SIGNED DATE/TIME: 09/18/242124 CC: Time of 1ST Reevaluation: 18:55 Reevaluation 1ST: Unchanged Patient Education/Counseling: Diagnosis, Treatment, Prognosis Family Education/Counseling: No Family Present Additional Information The following tests were ordered, and results were reviewed by me: CBC, CMP, LIPASE, UA, CT AB PEL WITH IV CON, MAGNESIUM, BETA HCG Additional Information was gathered from interviewing the following independent historians: sister I reviewed and agreed with the following test results read by other providers:CT AB PEL WITH IV CON, I discussed treatment and results with medical personnel and: patient and sister Comprehensive systems review obtained and negative except for what is stated in the HPI. SEPSIS Sepsis Screen Date sepsis recognized/suspect: Sep 18, 2024 Time Sepsis recognized/suspect: 1814 Recent Procedure: No On Antibiotic Therapy: No Respiratory Rate >20: No Heart Rate >90: No Temp<36 C (96.8 F) or >38.3 C: No SBP <90 or MAP <65 mmHG: No New Acute Mental Status Change: No Is the patient on CPAP, BIPAP,: No Physician Orders Heplock Iv (09/18/24 18:26) Box Attacher (09/18/24 ) Ct Ab Pel Wo Con-No Oral Or Iv (09/18/24 18:26) Vital Signs Date Time Temp Pulse Resp B/P (MAP) Pulse Ox O2 Delivery O2 Flow Rate FiO2 09/18/24 21:30 65 17 109/61 (77) 95 09/18/24 20:00 66 09/18/24 19:30 98.9 72 14 106/64 (78) 100 98.9 09/18/24 19:30 72 14 100 Room Air* 0 21 09/18/24 19:21 66 20 106/64 09/18/24 18:51 68 16 117/62 09/18/24 18:30 98.6 68 16 117/62 (80) 99 98.6 09/18/24 18:15 98.6 69 16 99 98.6 Laboratory Tests Test 09/18/24 18:39 White Blood Count 13.4 10^3/uL (4.4-10.8) H Medications Medications Dose Ordered Sig/Cat Route Start Time Stop Time Status Last Admin Dose Admin Hydromorphone HCl 1 mg ONCE ONCE IV 09/18/24 18:30 09/18/24 18:31 DC 09/18/24 18:51 Ketorolac Tromethamine 15 mg ONCE STAT IV 09/18/24 21:09 09/18/24 21:12 DC 09/18/24 21:23 Meclizine HCl 25 mg ONCE STAT PO 09/18/24 21:17 09/18/24 21:19 DC 09/18/24 22:07 Ondansetron HCl 4 mg ONCE ONCE IV 09/18/24 18:30 09/18/24 18:31 DC 09/18/24 18:43 Ondansetron HCl 4 mg ONCE STAT IV 09/18/24 21:09 09/18/24 21:12 DC 09/18/24 21:24 Prochlorperazine Edisylate 10 mg ONCE STAT IV 09/18/24 21:46 09/18/24 21:48 DC 09/18/24 21:50 Sodium Chloride 1,000 ml @ 1,000 mls/hr Q1H ONCE IVB 09/18/24 18:30 09/18/24 19:29 DC 09/18/24 18:41 Departure 1 Departure Time of Disposition: 22:38 Impression: Primary Impression: Intractable nausea and vomiting Additional Impressions: Dehydration Muscle cramping Disposition: ADMITTED INPATIENT Admit to: Med Surg Condition: Guarded Discharged With: Self Comments Malaise with Nausea, Vomiting, and Dehydration Chief Complaint: Malaise with nausea and vomiting for 2 days History of Present Illness: 29-year-old female with a history of anxiety presents to the ED with complaints of malaise, nausea, and vomiting for the past two days. Patient reports cramping sensations in her arms and legs, as well as crampy abdominal pain. She also describes feeling anxious and bloated. Patient is concerned that the muscle cramping she has been experiencing could represent seizure activity, though she denies any loss of consciousness, foaming at the mouth, urinary incontinence, or tongue abrasions. On reevaluation, patient continues to report nausea and an inability to tolerate oral fluids. Review of Systems: Constitutional: Positive for malaise. Gastrointestinal: Positive for nausea, vomiting, abdominal pain, and bloating. Musculoskeletal: Positive for cramping sensations in arms and legs. Psychiatric: Positive for anxiety. Neurological: Denies loss of consciousness, seizure activity. All other systems reviewed and negative. Physical Exam: General: Patient appears anxious. Abdomen: Mild tenderness in all quadrants. Lab Results: CBC: WBC elevated at 13.4 Chemistry: Potassium slightly low at 3.4, otherwise unremarkable test: Negative Urinalysis: Positive for ketones, otherwise unremarkable Imaging and Other Relevant Results: CT Abdomen and Pelvis: No acute pathology identified. Medical Decision Making: Summary Statement: 29-year-old female with history of anxiety presenting with 2- day history of nausea, vomiting, malaise, and muscle cramping, found to have leukocytosis, hypokalemia, and ketonuria. Problem List: 1. Intractable nausea and vomiting 2. Dehydration with ketonuria 3. Mild hypokalemia 4. Leukocytosis 5. Anxiety Differential Diagnosis: Viral gastroenteritis, anxiety-induced gastrointestinal symptoms, early appendicitis, pancreatitis, small bowel obstruction, metabolic derangement, medication side effect, -related nausea (ruled out). ED Course: Patient evaluated with comprehensive laboratory studies and CT imagin g. Despite negative imaging, patient continues to experience intractable vomiting and inability to tolerate oral intake. Ketonuria suggests significant dehydration. Patient's concern about seizure activity was addressed and deemed unlikely based on clinical presentation. Assessment and Plan: 1. Intractable nausea and vomiting with dehydration: - Admit to hospital for IV fluid resuscitation - IV antiemetics as needed - Serial electrolyte monitoring - Gradual advancement of diet as tolerated 2. Hypokalemia (K+ 3.4): - IV potassium supplementation - Monitor levels with daily chemistry panels 3. Leukocytosis (WBC 13.4): - Likely stress response or early infectious process - Monitor trend - Consider broad-spectrum antibiotics if clinical deterioration 4. Anxiety: - Continue home medications if applicable - Psychiatry consult if symptoms worsen 5. Muscle cramping: - Likely related to electrolyte imbalance and dehydration - Reassured patient that seizure activity is unlikely based on clinical presentation - Monitor for improvement with hydration and electrolyte correction Additional Notes: Patient admitted for intractable vomiting and dehydration Billing Information: ICD-10: R11.2 - Nausea with vomiting, unspecified ICD-10: E86.0 - Dehydration ICD-10: F41.9 - Anxiety disorder, unspecified ICD-10: R53.83 - Other fatigue Critical Care Note Critical Care Time?: No Stability Stability form required: No I personally scribed for PAMELA GÓMEZ MD ([email or web address]) on 09/18/24 at 18:35. Electronically submitted by Carla Sanchez ([email or web address]). I personally scribed for PAMELA GÓMEZ MD ([email or web address]) on 09/18/24 at 18:37. Electronically submitted by Carla Sanchez ([email or web address]). I personally scribed for PAMELA GÓMEZ MD ([email or web address]) on 09/18/24 at 21:33. Electronically submitted by Carla Sanchez ([email or web address]). PAMELA GÓMEZ MD Sep 18, 2024 18:35
[2024-09-18] MEDS: SODIUM CHLORIDE 0.9% 1,000 ML IVB ONE (18:41)
[2024-09-18] MEDS: ONDANSETRON HCL 4 MG/2 ML VIAL IV ONE (18:43)
[2024-09-18 18:48] LABS: Hematocrit 39.2 % (36.0-46.0); Hemoglobin 13.6 g/dL (12.2-16.2); Mean Corpuscular Hemoglobin 29.5 pg (28.0-32.0); Mean Corpuscular Volume 84.9 fL (80.0-100.0); Nucleated Red Blood Cells % 0.1 %
[2024-09-18] MEDS: HYDROmorphone HCL 2 MG/ML VL/or syr IV ONE (18:51)
[2024-09-18 19:03] LABS: Alanine Aminotransferase 13 U/L (7-40); Albumin 4.7 g/dL (3.2-4.8); Alkaline Phosphatase 76 U/L (46-116); Anion Gap 12 (5-15); BUN/Creatinine Ratio 10.3 (10.0-20.0); Bilirubin, Total 0.5 mg/dL (0.2-1.0); Calcium 9.2 mg/dL (8.7-10.4); Carbon Dioxide 21 mmol/L (20-31); Chloride 107 mmol/L (98-107); Glucose 99 mg/dL (74-106); Lipase 32 U/L (12-53); Magnesium 1.7 mg/dL (1.6-2.6); Sodium 140 mmol/L (136-145); Total Protein 7.1 g/dL (5.7-8.2)
[2024-09-18 19:06] LABS: Blood Urea Nitrogen 7 mg/dL (9-23); Potassium 3.4 mmol/L (3.5-5.1)
[2024-09-18 19:30] VITALS: PULSE 72; RESP 14; O2SAT 100
[2024-09-18] MEDS: KETOROLAC TROMETH 30 MG/ML 1ML VIAL IV STA (21:23)
[2024-09-18] MEDS: ONDANSETRON HCL 4 MG/2 ML VIAL IV STA (21:24)
--- NOTE | 2024-09-18 21:28 | DVH ---
Exam: CT CT AB PEL WO CON-NO ORAL OR IV History: abd pain Comparison Study: CT CT AB PEL WO CON-NO ORAL OR IV on DOS: 01/23/23, CT CT AB PEL WO CON-NO ORAL OR I V on DOS: 11/14/22, CT CT AB PEL WO CON-NO ORAL OR IV on DOS: 08/08/22, CT ABD PELVIS WO CONTRAST on DO S: 10/11/21, CT ABD PELVIS WO CONTRAST on DOS: 09/19/20 TECHNIQUE: Multidetector CT of the abdomen and pelvis was performed from lung bases to pubic symphysi s. Imaging was performed without IV contrast. Axial, coronal, and sagittal multiplanar reformats were obtained from the axial data set by the technologist. RADIATION DOSE: CTDI vol 22.17 mGy. DLP 1397.7 mGy.cm Findings: Limited evaluation of the solid organs in the absence of IV contrast. Evaluation is degraded by motio n artifact. Liver: Unremarkable. Spleen: Unremarkable. Pancreas: Unremarkable. Gallbladder: Unremarkable. Adrenals: Unremarkable Kidneys: Unremarkable. Pelvic Viscera: Unremarkable. Vasculature: Unremarkable. Retroperitoneum: Unremarkable. Bowel: No bowel obstruction. The appendix is normal. Musculoskeletal: Unremarkable. Soft tissues: Unremarkable Lungs: The lung bases are clear. Impression: 1. Motion degraded evaluation without acute abdominopelvic abnormality identified.
[2024-09-18] MEDS: PROCHLORPERAZINE EDISYLATE 5 MG/ML 2ML VIAL IV STA (21:50)
[2024-09-18] MEDS: MECLIZINE HCL 25 MG TAB PO STA (22:07)
[2024-09-18 22:14] LABS: Urine Protein, UAD Negative (Negative)
[2024-09-19] MEDS: SODIUM CHLORIDE 0.9% 1,000 ML IV ONE (00:12)
[2024-09-19] MEDS ORDERED: ACETAMINOPHEN 325 MG TAB PO PRN (01:00)
--- NOTE | 2024-09-19 02:59 | DVHHP2 ---
History of Present Illness Reason for Visit: Nausea and vomiting History of Present Illness 29-year-old female presents for evaluation of nausea and vomiting. Patient reports a two day history of diffuse abdominal pain with associated nausea and vomiting. Patient reports having similar episodes in the past and was diagnosed with "intestinitis". He states having symptoms for the past two days. No fever or chills. Past Medical History Anxiety Past Surgical History Denies Family History Diabetes mellitus, heart disease Smoke: No ALCOHOL: none Drugs: Marijuana Lives: with Family Review of Systems Review of Systems Review of systems are currently negative otherwise addressed in HPI. Allergies: Coded Allergies: Iodine (Verified Allergy, Unknown, 07/20/22) Uncoded Allergies: IV CONTRAST (Allergy, Unknown, 09/19/20) Medications Current Medications Medications Dose Ordered Sig/Cat Route Start Time Stop Time Status Last Admin Dose Admin Pantoprazole Sodium 40 mg DAILY IV 09/19/24 10:00 Ketorolac Tromethamine 15 mg Q8HPRN PRN IV 09/19/24 01:00 09/24/24 00:59 Acetaminophen/ Hydrocodone Bitart 1 tab Q4HP PRN PO 09/19/24 01:00 Ondansetron HCl 4 mg Q4HP PRN IV 09/19/24 01:00 Acetaminophen 650 mg Q6HP PRN PO 09/19/24 01:00 Exam Vital Signs Vital Signs Date Time Temp Pulse Resp B/P (MAP) Pulse Ox O2 Delivery O2 Flow Rate FiO2 09/19/24 01:22 98.1 105 20 110/59 (76) 95 98.1 09/18/24 19:30 Room Air* 0 21 Exam Gen: 29-year-old female in no apparent distress, morbidly obese Skin: Warm, dry, normal color and texture, no rash. HEENT: Normocephalic atraumatic, mucous membranes moist and pink. Neck: Cervical and supraclavicular nodes normal without enlargement, trachea is midline, thyroid gland is normal without masses. Pulmonary: Clear to auscultation and percussion bilaterally. Cardiac: Regular rate and rhythm. No murmur Abdomen: Soft, nontender, nondistended, bowel sounds present all 4 quadrants, no guarding, no rigidity, no organomegaly. Extremities: No cyanosis, clubbing, no edema Neuro: Cranial nerves II through XII grossly intact, normal affect and speech, no focal motor deficits. Labs/Xrays ORDERING PHYSICIAN: PAMELA GÓMEZ MD PROCEDURE(s): ABPL - CT AB PEL WO CON-NO ORAL OR IV REASON: abd pain ORDER NUMBER(s): [id number], ACCESSION NUMBER(s): [id number] Exam: CT CT AB PEL WO CON-NO ORAL OR IV History: abd pain Comparison Study: CT CT AB PEL WO CON-NO ORAL OR IV on DOS: 01/23/23, CT CT AB PEL WO CON-NO ORAL OR IV on DOS: 11/14/22, CT CT AB PEL WO CON-NO ORAL OR IV on DOS: 08/08/22, CT ABD PELVIS WO CONTRAST on DOS: 10/11/21, CT ABD PELVIS WO CONTRAST on DOS: 09/19/20 TECHNIQUE: Multidetector CT of the abdomen and pelvis was performed from lung bases to pubic symphysis. Imaging was performed without IV contrast. Axial, coronal, and sagittal multiplanar reformats were obtained from the axial data set by the technologist. RADIATION DOSE: CTDI vol 22.17 mGy. DLP 1397.7 mGy.cm Findings: Limited evaluation of the solid organs in the absence of IV contrast. Evaluation is degraded by motion artifact. Liver: Unremarkable. Spleen: Unremarkable. Pancreas: Unremarkable. Gallbladder: Unremarkable. Adrenals: Unremarkable Kidneys: Unremarkable. Pelvic Viscera: Unremarkable. Vasculature: Unremarkable. Retroperitoneum: Unremarkable. Bowel: No bowel obstruction. The appendix is normal. Musculoskeletal: Unremarkable. Soft tissues: Unremarkable Lungs: The lung bases are clear. Impression: 1. Motion degraded evaluation without acute abdominopelvic abnormality identified. Labs Test 09/18/24 21:55 09/18/24 18:39 Range/Units Urine Color Light-yellow Yellow Urine Clarity Clear Clear Urine pH 8.0 5.0-9.0 Urine Specific [place] 1.022 1.001-1.035 Urine Protein Negative Negative Urine Ketones 3+ H Negative Urine Blood Negative Negative /uL Urine Nitrite Negative Negative Urine Bilirubin Negative Negative Urine Urobilinogen Normal Negative mg/dL Urine Leukocyte Esterase Negative Negative /uL Urine RBC 1 0 - 4 /hpf Urine Microscopic WBC 1 0-5 /HPF Urine Squamous Epithelial Cells Few <5 /hpf Urine Bacteria None seen None Seen /hpf Urine Mucus Few None Seen Urine Glucose Normal Normal mg/dL White Blood Count 13.4 H 4.4-10.8 10^3/uL Red Blood Count 4.62 4.0-5.20 10^6/uL Hemoglobin 13.6 12.2-16.2 g/dL Hematocrit 39.2 36.0-46.0 % Mean Corpuscular Volume 84.9 80.0-100.0 fL Mean Corpuscular Hemoglobin 29.5 28.0-32.0 pg Mean Corpuscular Hemoglobin Concent 34.7 32.0-36.0 g/dL Red Cell Distribution Width 14.1 11.8-14.3 % Platelet Count 260 140-450 10^3/uL Mean Platelet Volume 10.0 6.9-10.8 fL Neutrophils (%) (Auto) 68.1 37.0-80.0 % Lymphocytes (%) (Auto) 23.1 10.0-50.0 % Monocytes (%) (Auto) 6.7 0.0-12.0 % Eosinophils (%) (Auto) 1.0 0.0-7.0 % Basophils (%) (Auto) 1.1 0.0-2.0 % Neutrophils # (Auto) 9.1 H 1.6-8.6 10 ^3/uL Lymphocytes # (Auto) 3.1 0.4-5.4 10 ^3/uL Monocytes # (Auto) 0.9 0-1.3 10 ^3/uL Eosinophils # (Auto) 0.1 0-0.8 10 ^3/uL Basophils # (Auto) 0.2 0-0.2 10 ^3/uL Nucleated Red Blood Cells 0.1 % Sodium Level 140 136-145 mmol/L Potassium Level 3.4 L 3.5-5.1 mmol/L Chloride Level 107 98-107 mmol/L Carbon Dioxide Level 21 20-31 mmol/L Anion Gap 12 5-15 Blood Urea Nitrogen 7 L 9-23 mg/dL Creatinine 0.68 0.550-1.02 mg/dL Glomerular Filtration Rate Calc 120 >90 mL/min BUN/Creatinine Ratio 10.3 10.0-20.0 Serum Glucose 99 74-106 mg/dL Calcium Level 9.2 8.7-10.4 mg/dL Magnesium Level 1.7 1.6-2.6 mg/dL Total Bilirubin 0.5 0.2-1.0 mg/dL Aspartate Amino Transferase (AST) 17 13-40 U/L Alanine Aminotransferase (ALT) 13 7-40 U/L Alkaline Phosphatase 76 46-116 U/L Total Protein 7.1 5.7-8.2 g/dL Albumin 4.7 3.2-4.8 g/dL Lipase 32 12-53 U/L Beta HCG, Quantitative 0.4 L 1.5-4.2 mIU/mL SEPSIS Sepsis Screen Date sepsis recognized/suspect: Sep 18, 2024 Time Sepsis recognized/suspect: 2105 Recent Procedure: No On Antibiotic Therapy: No Respiratory Rate >20: No Heart Rate >90: No Temp<36 C (96.8 F) or >38.3 C: No SBP <90 or MAP <65 mmHG: No New Acute Mental Status Change: No Is the patient on CPAP, BIPAP,: No 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 ) Sodium Chloride 0.9% (09/19/24 00:00) Admit (09/18/24 23:55) Pantoprazole (Protonix) (09/19/24 10:00) Ketorolac Injection (Toradol Injection) (09/19/24 01:00) Basic Metabolic Panel (09/19/24 04:00) Hydrocodone-Acet 5/325mg Tab ([place] 32 (09/19/24 01:00) Ondansetron Hcl (Zofran) (09/19/24 01:00) Condition: Stable (09/19/24 01:00) Acetaminophen Tablet (Tylenol Tablet) (09/19/24 01:00) Clear Liq Diet (09/19/24 Breakfast) Bedrest With Bathroom Privileg (09/19/24 01:00) Vital Signs Date Time Temp Pulse Resp B/P (MAP) Pulse Ox O2 Delivery O2 Flow Rate FiO2 09/19/24 01:22 98.1 105 20 110/59 (76) 95 98.1 09/19/24 00:00 80 09/18/24 23:30 58 16 101/48 (65) 93 09/18/24 21:30 65 17 109/61 (77) 95 09/18/24 20:00 66 09/18/24 19:30 98.9 72 14 106/64 (78) 100 98.9 09/18/24 19:30 72 14 100 Room Air* 0 21 09/18/24 19:21 66 20 106/64 Laboratory Tests Test 09/18/24 18:39 White Blood Count 13.4 10^3/uL (4.4-10.8) H Medications Medications Dose Ordered Sig/Cat Route Start Time Stop Time Status Last Admin Dose Admin Hydromorphone HCl 1 mg ONCE ONCE IV 09/18/24 18:30 09/18/24 18:31 DC 09/18/24 18:51 1 MG Ketorolac Tromethamine 15 mg ONCE STAT IV 09/18/24 21:09 09/18/24 21:12 DC 09/18/24 21:23 15 MG Meclizine HCl 25 mg ONCE STAT PO 09/18/24 21:17 09/18/24 21:19 DC 09/18/24 22:07 25 MG Ondansetron HCl 4 mg ONCE ONCE IV 09/18/24 18:30 09/18/24 18:31 DC 09/18/24 18:43 4 MG Ondansetron HCl 4 mg ONCE STAT IV 09/18/24 21:09 09/18/24 21:12 DC 09/18/24 21:24 4 MG Prochlorperazine Edisylate 10 mg ONCE STAT IV 09/18/24 21:46 09/18/24 21:48 DC 09/18/24 21:50 10 MG Sodium Chloride 1,000 ml @ 100 mls/hr Q10H ONCE IV 09/19/24 00:00 09/19/24 09:59 09/19/24 00:12 100 MLS/HR Sodium Chloride 1,000 ml @ 1,000 mls/hr Q1H ONCE IVB 09/18/24 18:30 09/18/24 19:29 DC 09/18/24 18:41 1,000 MLS/HR Assessment/Plan Assessment/Plan Acute gastroenteritis Muscle cramps Dehydration Electrolyte imbalance Plan Admit the patient to [facility] to the hospitalist Clear liquid diet Maintenance IV fluids Pain management Replete electrolytes Continue treatment per orders. Plan discussed with: Patient My Orders Orders - CLAUDETTE WAGNERCNP Procedure Category Date Status Time Sodium Chloride 0.9% PHA 09/19/24 In Process 00:00 Admit ADMIT 09/18/24 Transmitted 23:55 Pantoprazole PHA 09/19/24 In Process (Protonix) 10:00 Ketorolac Injection PHA 09/19/24 In Process (Toradol Injection) 01:00 Basic Metabolic Panel LAB 09/19/24 Logged 04:00 Hydrocodone-Acet PHA 09/19/24 In Process 5/325mg Tab ([place] 01:00 Ondansetron Hcl PHA 09/19/24 In Process (Zofran) 01:00 Condition: Stable NELLY 09/19/24 In Process 01:00 Acetaminophen Tablet PHA 09/19/24 In Process (Tylenol Tablet) 01:00 Clear Liq Diet DIET 09/19/24 Transmitted Breakfast Bedrest With Bathroom NELLY 09/19/24 In Process Privileg 01:00 Date of Service: Sep 18, 2024 Billing Provider: CLAUDETTE WAGNER Common Visit Codes: [id number] INP/OBS CARE (MOD) CLAUDETTE WAGNER Sep 19, 2024 02:59
[2024-09-19] MEDS: ONDANSETRON HCL 4 MG/2 ML VIAL IV PRN (03:43)
[2024-09-19] MEDS: KETOROLAC TROMETH 30 MG/ML 1ML VIAL IV PRN (04:02)
[2024-09-19] MEDS: METOCLOPRAMIDE HCL 5MG/ml INJ 2ml VIAL IV ONE (04:26)
[2024-09-19] MEDS: KETOROLAC TROMETH 30 MG/ML 1ML VIAL IV ONE (05:15)
[2024-09-19] MEDS: ONDANSETRON HCL 4 MG/2 ML VIAL IV ONE (05:16)
[2024-09-19 05:21] LABS: Opiate Scree,Urine Neg (NEGATIVE)
[2024-09-19 05:24] LABS: Amphetamine Screen, Urine Neg (NEGATIVE); Barbiturate Scree,Urine Neg (NEGATIVE); Benzodiazephine Screen, Urine Neg (NEGATIVE); Cannabinoid Screen, Urine Pos (NEGATIVE); Cocaine Screen, Urine Neg (NEGATIVE); Phencyclidine Screen, Urine Neg (NEGATIVE)
[2024-09-19] MEDS: HYDROmorphone HCL 2 MG/ML VL/or syr IV ONE (06:05)
[2024-09-19 06:45] LABS: Potassium 3.5 mmol/L (3.5-5.1); Sodium 140 mmol/L (136-145)
[2024-09-19 06:46] LABS: Anion Gap 13 (5-15); Calcium 9.2 mg/dL (8.7-10.4); Carbon Dioxide 18 mmol/L (20-31); Chloride 109 mmol/L (98-107)
[2024-09-19 06:51] LABS: BUN/Creatinine Ratio 8.6 (10.0-20.0); Blood Urea Nitrogen 6 mg/dL (9-23); Glucose 111 mg/dL (74-106)
[2024-09-19 08:00] VITALS: PULSE 53; RESP 16; O2SAT 98
[2024-09-19] MEDS: PANTOPRAZOLE 40 MG/10 ML VIAL INJ IV SCH (10:55)
[2024-09-19] MEDS: HYDROcodone-ACET 5/325MG TAB PO PRN (14:33)
[2024-09-19] MEDS ORDERED: HYDR-3682 PO (17:24)
[2024-09-19 17:27] VITALS: BP 105/72; PULSE 54; RESP 16; TEMP 98.2; O2SAT 97
--- NOTE | 2024-09-19 17:57 | DVHPN2 ---
Subjective I am assuming the care with the patient prolonged QT on beds. Patient denies any nausea vomiting. Patient told me that she had episode of seizure at home. 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 Medications Current Medications Medications Dose Ordered Sig/Cat Route Start Time Stop Time Status Last Admin Dose Admin Pantoprazole Sodium 40 mg DAILY IV 09/19/24 10:00 09/19/24 10:55 40 MG Ketorolac Tromethamine 15 mg Q8HPRN PRN IV 09/19/24 01:00 09/24/24 00:59 09/19/24 04:02 15 MG Acetaminophen/ Hydrocodone Bitart 1 tab Q4HP PRN PO 09/19/24 01:00 09/19/24 14:33 1 TAB Ondansetron HCl 4 mg Q4HP PRN IV 09/19/24 01:00 09/19/24 14:33 4 MG Acetaminophen 650 mg Q6HP PRN PO 09/19/24 01:00 Laboratory Results Laboratory Tests 09/18/24 18:39 09/19/24 05:02 Chemistry Test 09/18/24 18:39 09/19/24 05:02 Albumin 4.7 g/dL (3.2-4.8) Calcium Level 9.2 mg/dL (8.7-10.4) 9.2 mg/dL (8.7-10.4) Magnesium Level 1.7 mg/dL (1.6-2.6) Total Protein 7.1 g/dL (5.7-8.2) Lipid panel Test 09/18/24 18:39 Lipase 32 U/L (12-53) LFT Test 09/18/24 18:39 Alanine Aminotransferase (ALT) 13 U/L (7-40) Alkaline Phosphatase 76 U/L (46-116) Aspartate Amino Transferase (AST) 17 U/L (13-40) Total Bilirubin 0.5 mg/dL (0.2-1.0) Urinalysis Test 09/18/24 21:55 Urine Color Light-yellow (Yellow) Urine Clarity Clear (Clear) Urine pH 8.0 (5.0-9.0) Urine Specific [place] 1.022 (1.001-1.035) Urine Protein Negative (Negative) Urine Ketones 3+ (Negative) H Urine Blood Negative /uL (Negative) Urine Nitrite Negative (Negative) Urine Bilirubin Negative (Negative) Urine Urobilinogen Normal mg/dL (Negative) Urine Leukocyte Esterase Negative /uL (Negative) Urine RBC 1 /hpf (0 - 4) Urine Microscopic WBC 1 /HPF (0-5) Urine Squamous Epithelial Cells Few /hpf (<5) Urine Bacteria None seen /hpf (None Seen) Urine Mucus Few (None Seen) Urine Glucose Normal mg/dL (Normal) Assessment/Plan Assessment/Plan 19-year-old young female bed known history of anxiety disorder presented to the hospital with the abdominal pain nausea vomiting on episode of seizure found to have nicotine 1. Abdominal pain nausea vomiting currently resolved CT abdomen and pelvis shows no evidence of acute pathology 1. Abdominal pain nausea , vomiting uspect acute viral gastroenteritis next 2. Leukocytosis s likely reactive 3. Questionable seizure 4. Anxiety disorder -obtain Neurology consultation, pain meds as Plan discussed with: Patient My Orders Orders - SOREN FOWLER MD Procedure Category Date Status Time * Neurology Consult CONS 09/19/24 Verified 17:[address] 09/19/24 Verified 17:55 Date of Service: Sep 19, 2024 Billing Provider: SOREN FOWLER MD Common Visit Codes: [id number] INP/OBS CARE(MOD) SOREN FOWLER MD Sep 19, 2024 17:57
--- NOTE | 2024-09-19 18:49 | DVH ---
EXAM: CT HEAD WITHOUT CONTRAST INDICATION: Seizures. TECHNIQUE: CT of the head without intravenous contrast. Radiation Dose : 1. Head: CT Dose: CTDI volume is 52.25 mGy. Dose-length product is 837.65 mGy*cm The dose indicators for CT are the volume Computed Tomography (CT) Dose Index (CTDIvol) and the Dose Length Product (DLP), and are measured in units of mGy and mGy-cm, respectively. These indicators are not patient dose, but values generated from the CT scanner acquisition factors. The report includes radiation exposure data for exposures received during this examination. COMPARISON: None FINDINGS: There is no evidence of acute intracranial hemorrhage, extra-axial collection, mass effect, midline s hift, herniation or hydrocephalus. The ventricles, sulci and cisterns are age appropriate. The long-white differentiation is intact. The visualized paranasal sinuses and mastoid air cells are clear. The surrounding soft tissues and osseous structures are unremarkable. IMPRESSION: No acute intracranial abnormality. Radiation optimization: All CT scans at this facility use at least one of these dose optimization em hniques: automated exposure control mA and/or kV adjustment per patient size (includes targeted exam s where dose is matched to clinical indication) or iterative reconstruction.
[2024-09-19 21:00] VITALS: BP 113/73; PULSE 70; RESP 16; TEMP 98; O2SAT 98
[2024-09-20 01:00] VITALS: BP 102/64; PULSE 56; RESP 16; TEMP 98.3; O2SAT 97
[2024-09-20 05:00] VITALS: BP 105/70; PULSE 65; RESP 16; TEMP 97.6; O2SAT 98
[2024-09-20 09:00] VITALS: BP 114/76; PULSE 54; RESP 16; TEMP 98.6; O2SAT 99
[2024-09-20 13:00] VITALS: BP 112/84; PULSE 62; RESP 16; TEMP 98.9; O2SAT 99
[2024-09-20 17:00] VITALS: BP 118/73; PULSE 58; RESP 18; TEMP 98.8; O2SAT 97
--- NOTE | 2024-09-20 17:17 | DVHPN2 ---
Subjective Patient denies any complaints but currently be awaiting for Neurology consultation. 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 Medications Current Medications Medications Dose Ordered Sig/Cat Route Start Time Stop Time Status Last Admin Dose Admin Pantoprazole Sodium 40 mg DAILY IV 09/19/24 10:00 09/20/24 09:34 40 MG Ketorolac Tromethamine 15 mg Q8HPRN PRN IV 09/19/24 01:00 09/24/24 00:59 09/19/24 04:02 15 MG Acetaminophen/ Hydrocodone Bitart 1 tab Q4HP PRN PO 09/19/24 01:00 09/20/24 16:58 1 TAB Ondansetron HCl 4 mg Q4HP PRN IV 09/19/24 01:00 09/20/24 10:02 4 MG Acetaminophen 650 mg Q6HP PRN PO 09/19/24 01:00 Laboratory Results Laboratory Tests 09/18/24 18:39 09/19/24 05:02 Urinalysis Test 09/18/24 21:55 Urine Color Light-yellow (Yellow) Urine Clarity Clear (Clear) Urine pH 8.0 (5.0-9.0) Urine Specific [place] 1.022 (1.001-1.035) Urine Protein Negative (Negative) Urine Ketones 3+ (Negative) H Urine Blood Negative /uL (Negative) Urine Nitrite Negative (Negative) Urine Bilirubin Negative (Negative) Urine Urobilinogen Normal mg/dL (Negative) Urine Leukocyte Esterase Negative /uL (Negative) Urine RBC 1 /hpf (0 - 4) Urine Microscopic WBC 1 /HPF (0-5) Urine Squamous Epithelial Cells Few /hpf (<5) Urine Bacteria None seen /hpf (None Seen) Urine Mucus Few (None Seen) Urine Glucose Normal mg/dL (Normal) Assessment/Plan Assessment/Plan 19-year-old young female bed known history of anxiety disorder presented to the hospital with the abdominal pain nausea vomiting on episode of seizure found to have nicotine 1. Abdominal pain nausea vomiting currently resolved CT abdomen and pelvis shows no evidence of acute pathology 1. Abdominal pain nausea , vomiting uspect acute viral gastroenteritis next 2. Leukocytosis s likely reactive 3. Questionable seizure 4. Anxiety disorder -obtain Neurology consultation, pain meds as needed. Plan discussed with: Patient My Orders Orders - SOREN FOWLER MD Procedure Category Date Status Time * Neurology Consult CONS 09/19/24 Transmitted 17:[address] 09/19/24 Resulted 17:55 Date of Service: Sep 20, 2024 Billing Provider: SOREN FOWLER MD Common Visit Codes: [id number] INP/OBS CARE(MOD) SOREN FOWLER MD Sep 20, 2024 17:17
[2024-09-20 21:00] VITALS: BP 120/81; PULSE 56; RESP 16; TEMP 98.1; O2SAT 97
[2024-09-21] VITALS (8 sets, daily range): BP systolic 95–139; BP diastolic 61–87; PULSE 60–78; RESP 16–20; TEMP 97.5–98.9; O2SAT 97–100
[2024-09-21 12:37] LABS: Hematocrit 42.4 % (36.0-46.0); Hemoglobin 14.5 g/dL (12.2-16.2); Mean Corpuscular Hemoglobin 28.9 pg (28.0-32.0); Mean Corpuscular Volume 84.7 fL (80.0-100.0); Nucleated Red Blood Cells % 0.0 %
[2024-09-21 12:49] LABS: Chloride 105 mmol/L (98-107); Potassium 3.7 mmol/L (3.5-5.1); Sodium 140 mmol/L (136-145)
[2024-09-21 12:50] LABS: Anion Gap 14 (5-15); Calcium 9.2 mg/dL (8.7-10.4); Carbon Dioxide 21 mmol/L (20-31)
[2024-09-21 12:55] LABS: BUN/Creatinine Ratio 6.9 (10.0-20.0)
[2024-09-21 13:12] LABS: Blood Urea Nitrogen 6 mg/dL (9-23); Glucose 115 mg/dL (74-106)
[2024-09-21] MEDS: HYDROmorphone HCL 2 MG/ML VL/or syr IV PRN (14:52)
[2024-09-21] MEDS: cefTRIAXone 1GM/50ML D5W 50 ML IV SCH (15:33)
--- NOTE | 2024-09-21 16:31 | DVH ---
EXAM: XY CHEST XRAY 1 VIEW TECHNIQUE: Single frontal chest radiograph CLINICAL HISTORY: Elevated white count. COMPARISON: XY CHEST XRAY 1 VIEW on DOS: 01/23/23, XY CHEST TWO VIEWS ROUTINE on DOS: 11/14/22, CHEST P ORTABLE on DOS: 09/19/20 Findings/Impression: Frontal chest radiograph demonstrates no acute osseous or superficial soft tissue abnormalities. The trachea is midline. The cardiac silhouette and mediastinum are within normal limits. No pneumothorax, pleural effusions, or consolidations.
[2024-09-21 17:52] LABS: Urine Protein, UAD TRACE (Negative)
--- NOTE | 2024-09-21 17:58 | DVHPN2 ---
Subjective Patient denies any complaints but currently be awaiting for Neurology consultation. 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 Medications Current Medications Medications Dose Ordered Sig/Cat Route Start Time Stop Time Status Last Admin Dose Admin Pantoprazole Sodium 40 mg DAILY IV 09/19/24 10:00 09/21/24 09:25 40 MG Acetaminophen/ Hydrocodone Bitart 1 tab Q4HP PRN PO 09/19/24 01:00 09/21/24 09:32 1 TAB Ondansetron HCl 4 mg Q4HP PRN IV 09/19/24 01:00 09/21/24 13:54 4 MG Acetaminophen 650 mg Q6HP PRN PO 09/19/24 01:00 Hydromorphone HCl 0.5 mg Q4HPRN PRN IV 09/21/24 14:30 09/21/24 14:52 0.5 MG Ceftriaxone Sodium 50 ml @ 100 mls/hr DAILY@09 IV 09/21/24 15:15 09/21/24 15:33 100 MLS/HR Metronidazole 100 ml @ 100 mls/hr Q8HR IV 09/21/24 15:15 09/21/24 16:43 100 MLS/HR Laboratory Results Laboratory Tests 09/21/24 12:19 Chemistry Test 09/21/24 12:19 Calcium Level 9.2 mg/dL (8.7-10.4) Urinalysis Test 09/21/24 16:35 Urine Color Yellow (Yellow) Urine Clarity Clear (Clear) Urine pH 7.5 (5.0-9.0) Urine Specific [place] 1.024 (1.001-1.035) Urine Protein Trace (Negative) H Urine Ketones 4+ (Negative) H Urine Blood 1+ /uL (Negative) H Urine Nitrite Negative (Negative) Urine Bilirubin Negative (Negative) Urine Urobilinogen 2 mg/dL (Negative) H Urine Leukocyte Esterase Negative /uL (Negative) Urine RBC 57 /hpf (0 - 4) Urine Microscopic WBC 2 /HPF (0-5) Urine Squamous Epithelial Cells Few /hpf (<5) Urine Bacteria None seen /hpf (None Seen) Urine Mucus Few (None Seen) Urine Glucose Normal mg/dL (Normal) Assessment/Plan Assessment/Plan 29-year-old young female bed known history of anxiety disorder presented to the hospital with the abdominal pain nausea vomiting on episode of seizure found to have nicotine 1. Abdominal pain nausea vomiting currently resolved CT abdomen and pelvis shows no evidence of acute pathology 1. Abdominal pain nausea , vomiting uspect acute viral gastroenteritis next 2. Leukocytosis likely reactive, trended up 3. Questionable seizure 4. Anxiety disorder -obtain Neurology consultation, pain meds as needed. -obtain panculture, empiric IV antibiotics Plan discussed with: Patient, Other (Patient's mom at bedside.) My Orders Orders - SOREN FOWELR MD Procedure Category Date Status Time Hydromorphone PHA 09/21/24 In Process Injection (Dilaudid 14:30 Blood Culture MALATHI 09/21/24 In Process 14:59 Urine Bacterial MALATHI 09/21/24 In Process Culture 14:59 Chest Xray 1 View XY 09/21/24 Resulted 14:59 Urine ED NURSING 09/21/24 Transmitted Ceftriaxone 1gm/50ml PHA 09/21/24 In Process D5w (Rocephin) 15:15 Metronidazole PHA 09/21/24 In Process 500mg/100ml (Flagyl 15:15 Date of Service: Sep 21, 2024 Billing Provider: SOREN FOWLER MD Common Visit Codes: [id number] INP/OBS CARE(MOD) SOREN FOWLER MD Sep 21, 2024 17:58
[2024-09-22 01:00] VITALS: BP 98/60; PULSE 69; RESP 16; TEMP 98.1; O2SAT 95
[2024-09-22 05:00] VITALS: BP 107/53; PULSE 71; RESP 18; TEMP 97.8; O2SAT 97
[2024-09-22 07:32] LABS: Hematocrit 36.3 % (36.0-46.0); Hemoglobin 12.6 g/dL (12.2-16.2); Mean Corpuscular Hemoglobin 29.5 pg (28.0-32.0); Mean Corpuscular Volume 85.4 fL (80.0-100.0); Nucleated Red Blood Cells % 0.0 %
[2024-09-22 07:41] LABS: Anion Gap 11 (5-15); Carbon Dioxide 23 mmol/L (20-31); Chloride 106 mmol/L (98-107); Sodium 140 mmol/L (136-145)
[2024-09-22 07:42] LABS: Calcium 8.5 mg/dL (8.7-10.4); Potassium 3.3 mmol/L (3.5-5.1)
[2024-09-22 07:47] LABS: BUN/Creatinine Ratio 9.5 (10.0-20.0); Glucose 94 mg/dL (74-106)
[2024-09-22 07:48] LABS: Blood Urea Nitrogen 7 mg/dL (9-23); Magnesium 2.0 mg/dL (1.6-2.6)
[2024-09-22 09:00] VITALS: BP 107/70; PULSE 60; RESP 18; TEMP 98.1; O2SAT 99
--- NOTE | 2024-09-22 13:39 | DVHDS2 ---
Discharge Summary Date of Admission Sep 18, 2024 at 23:55 Date of Discharge: Sep 22, 2024 Labs/Diagnostic Data: Laboratory Results Test 09/22/24 06:41 09/21/24 16:35 09/21/24 15:49 09/19/24 11:00 White Blood Count 10.0 10^3/uL (4.4-10.8) Red Blood Count 4.25 10^6/uL (4.0-5.20) Hemoglobin 12.6 g/dL (12.2-16.2) Hematocrit 36.3 % (36.0-46.0) Mean Corpuscular Volume 85.4 fL (80.0-100.0) Mean Corpuscular Hemoglobin 29.5 pg (28.0-32.0) Mean Corpuscular Hemoglobin Concent 34.6 g/dL (32.0-36.0) Red Cell Distribution Width 14.0 % (11.8-14.3) Platelet Count 250 10^3/uL (140-450) Mean Platelet Volume 9.9 fL (6.9-10.8) Neutrophils (%) (Auto) 58.2 % (37.0-80.0) Lymphocytes (%) (Auto) 31.1 % (10.0-50.0) Monocytes (%) (Auto) 9.9 % (0.0-12.0) Eosinophils (%) (Auto) 0.4 % (0.0-7.0) Basophils (%) (Auto) 0.4 % (0.0-2.0) Neutrophils # (Auto) 5.8 10 ^3/uL (1.6-8.6) Lymphocytes # (Auto) 3.1 10 ^3/uL (0.4-5.4) Monocytes # (Auto) 1.0 10 ^3/uL (0-1.3) Eosinophils # (Auto) 0 10 ^3/uL (0-0.8) Basophils # (Auto) 0 10 ^3/uL (0-0.2) Nucleated Red Blood Cells 0.0 % Sodium Level 140 mmol/L (136-145) Potassium Level 3.3 mmol/L (3.5-5.1) Chloride Level 106 mmol/L (98-107) Carbon Dioxide Level 23 mmol/L (20-31) Anion Gap 11 (5-15) Blood Urea Nitrogen 7 mg/dL (9-23) Creatinine 0.74 mg/dL (0.550-1.02) Glomerular Filtration Rate Calc 112 mL/min (>90) BUN/Creatinine Ratio 9.5 (10.0-20.0) Serum Glucose 94 mg/dL (74-106) Calcium Level 8.5 mg/dL (8.7-10.4) Phosphorus Level 4.6 mg/dL (2.4-5.1) Magnesium Level 2.0 mg/dL (1.6-2.6) Urine Color Yellow (Yellow) Urine Clarity Clear (Clear) Urine pH 7.5 (5.0-9.0) Urine Specific [place] 1.024 (1.001-1.035) Urine Protein Trace (Negative) Urine Ketones 4+ (Negative) Urine Blood 1+ /uL (Negative) Urine Nitrite Negative (Negative) Urine Bilirubin Negative (Negative) Urine Urobilinogen 2 mg/dL (Negative) Urine Leukocyte Esterase Negative /uL (Negative) Urine RBC 57 /hpf (0 - 4) Urine Microscopic WBC 2 /HPF (0-5) Urine Squamous Epithelial Cells Few /hpf (<5) Urine Bacteria None seen /hpf (None Seen) Urine Mucus Few (None Seen) Urine Glucose Normal mg/dL (Normal) Troponin I High Sensitivity < 3 ng/L (</=34) POC Glucose 113 mg/dl (70-106) Test 09/18/24 21:55 09/18/24 18:39 Urine Opiates Screen Neg (NEGATIVE) Urine Fentanyl Screen Neg (NEGATIVE) Urine Barbiturates Screen Neg (NEGATIVE) Urine Phencyclidine Screen Neg (NEGATIVE) Urine Amphetamines Screen Neg (NEGATIVE) Urine Benzodiazepines Screen Neg (NEGATIVE) Urine Cocaine Screen Neg (NEGATIVE) Urine Cannabinoids Screen Pos (NEGATIVE) Total Bilirubin 0.5 mg/dL (0.2-1.0) Aspartate Amino Transferase (AST) 17 U/L (13-40) Alanine Aminotransferase (ALT) 13 U/L (7-40) Alkaline Phosphatase 76 U/L (46-116) Total Protein 7.1 g/dL (5.7-8.2) Albumin 4.7 g/dL (3.2-4.8) Lipase 32 U/L (12-53) Beta HCG, Quantitative 0.4 mIU/mL (1.5-4.2) Other Laboratory Tests 09/22/24 06:41 Final Diagnosis/Problems List 29-year-old young female bed known history of anxiety disorder presented to the hospital with the abdominal pain nausea vomiting on episode of seizure found to have nicotine 1. Abdominal pain nausea vomiting currently resolved CT abdomen and pelvis shows no evidence of acute pathology 1. Abdominal pain nausea , vomiting uspect acute viral gastroenteritis next 2. Leukocytosis likely reactive, trended up 3. Questionable seizure 4. Anxiety disorder Discharge Disposition: Home Discharge Instruct/Medications Diet: Cardiac 2g Na,low cholest Activity: See Comment Activity comment: No driving, no signing of legal documents, no bleeding on heavy machinery if patient taking narcotics at home. Follow Up/Referral: Follow up with PCP in one week Medications: Resume home medications. Scheduled Clindamycin Hcl (Cleocin), 1 CAP PO TID Dicyclomine Hcl (Bentyl Capsule), 2 CAP PO Q6HPRN Pantoprazole Sodium Sesquihydr (Protonix), 40 MG PO BID Pantoprazole Sodium Sesquihydr (Protonix), 40 MG PO DAILY Prednisone (Prednisone), 60 MG PO DAILY Sucralfate (Carafate), 1 GM PO QID Scheduled PRN Hydrocodone-Acetaminophen (Hydrocodone Bitartrate/AC 5-325 mg), 1 TAB PO Q8HP PRN Hydroxyzine Hcl (Hydroxyzine Hcl), 25 MG PO for ANXIETY, (Reported) Metoclopramide Hcl (Reglan), 10 MG PO TIDPRN PRN Ondansetron (Zofran), 4 MG PO Q6HPRN PRN Ondansetron Odt 4MG Tab (Zofran Po), 4 MG PO Q6HP PRN Ondansetron Odt 4MG Tab (Zofran Po), 4 MG PO Q8HP PRN Discharge Statement: "Patient was advised to return to the ER or call 911 if any headaches, dizziness, shortness of breath, chest pain, abdominal pain, bleeding, fevers, or worsening of medical condition. Patient was counseled about treatment plan, medications, possible side effects, patientverbalized understanding. All questions were answered to the best of my ability. This discharge took greater then 30 minutes in planning, reviewing documentation, counseling the patient, and discussing with other team members." ASSESSMENT ASSESSMENT Assessment 29-year-old young female bed known history of anxiety disorder presented to the hospital with the abdominal pain nausea vomiting on episode of seizure found to have nicotine 1. Abdominal pain nausea vomiting currently resolved CT abdomen and pelvis shows no evidence of acute pathology 1. Abdominal pain nausea , vomiting uspect acute viral gastroenteritis next 2. Leukocytosis likely reactive, trended up 3. Questionable seizure 4. Anxiety disorder SOREN FOWLER MD Sep 22, 2024 13:39
[2024-09-22 14:43] VITALS: TEMP 36.7
--- NOTE | 2024-09-24 07:32 | ECG ---
[facility] Test Date: 2024-09-21 Test Time: 08:56:24 Pat Name: CLARIBEL MA Department: Respiratoy Room: [address] [place] [address] 2 Gender: F Liturgical Music Director: CELESTINO : 1995 Requested By: SOREN FOWLER Order Number: [id number] Reading MD: Measurements Intervals [place] Rate: 67 P: 79 RI: 159 QRS: 71 QRSD: 92 T: 10 QT: 467 QTc: 493 Interpretive Statements Sinus rhythm Borderline prolonged QT interval Please click the below link to view image of tracing.
== END 2024-09-22 15:05 | disposition home or self-care (01) | DRG 249 ==
LOC: ER 18:12 → OVERFLOW 23:55 → EAST 09-19 16:13
PROVIDERS: ADMIT Internal Medicine; ATTEND Internal Medicine
DX: A08.4 Viral intestinal infection, unspecified (principal); R56.9 Unspecified convulsions; E86.0 Dehydration; F41.9 Anxiety disorder, unspecified; Z91.041 Radiographic dye allergy status; Z83.3 Family history of diabetes mellitus
CPT/HCPCS: 36415; 70450; 71045; 74176; 80048; 80053; 80307; 81001; 82962; 83690; 83735; 84100; 84484; 84702; 85025; 87040; 87086; 96374; 96375; G0378; J1885; J2405; J2470; J3490

== ENCOUNTER 2025-01-17 02:29 | Inpatient (IN) | payer MEDICAID ==
[~2025-01-17] VITALS: Ht 160 cm; Wt 111.4 kg
[~2025-01-17 02:29] MED LIST changes: -CLIN150C PO; +HYDR-3682 PO; -ONDA-144 PO; -PRED20TA2 PO
--- NOTE | 2025-01-17 02:55 | ED.PDOC ---
GI ASSESSMENT HPI Comments 29-year-old female who came to ER via EMS for abdominal pain. Patient has a history of recurrent abdominal pain/gastritis. Seen here multiple times in the past few years for abdominal pain. Patient states that she also has history of seizures, which gets triggered whenever she gets abdominal pain. Patient states for the past 4 days she has been having epigastric abdominal pain with nausea and vomiting, and around 10:00 p.m. she had 2 episodes of seizures. Patient takes Topamax for her seizures Chief Complaint: Abdominal pain Time Seen by MD: 02:55 Primary Care Provider: [facility] Reviewed Notes: Funds Transfer Clerk Notes Allergies: Coded Allergies: Iodine (Verified Allergy, Unknown, 07/20/22) Uncoded Allergies: IV CONTRAST (Allergy, Unknown, 09/19/20) Home Meds Active Scripts Hydrocodone-Acetaminophen (Hydrocodone Bitartrate/AC 5-325 mg) 1 Tab Tab, 1 TAB PO Q8HP PRN for 5 Days, #15 TAB Prov:TAIWO BINGHAM MD 10/09/23 Metoclopramide Hcl (Reglan) 10 Mg Tab, 10 MG PO TIDPRN PRN for 10 Days, #30 TAB Prov:ERIK SESAY DO 07/18/23 Pantoprazole Sodium Sesquihydr (Protonix) 40 Mg Tab, 40 MG PO DAILY, #30 TAB Prov:TAIWO BINGHAM MD 07/16/23 Ondansetron Odt 4MG Tab (ZOFRAN PO) 4 Mg Tb, 4 MG PO Q6HP PRN for 5 Days, #15 TAB ODT TAB-DISSOLVE IN MOUTH, THEN SWALLOW Prov:AYDEN ARGUETA NP 01/26/23 Sucralfate (CARAFATE) 1 Gm Tab, 1 GM PO QID for 30 Days, #120 TAB 3 Refills Prov:AYDEN ARGUETA NP 01/26/23 Dicyclomine Hcl (BENTYL CAPSULE) 10 Mg Cp, 2 CAP PO Q6HPRN, #40 CAP 3 Refills Prov:AYSE MIRANDA DO 07/19/22 Reported Medications Hydroxyzine Hcl (Hydroxyzine Hcl) 25 Mg Tab, 25 MG PO PRN for ANXIETY for 30 Days, MG 09/19/24 Information Source: Patient Mode of Arrival: EMS Past Medical History PAST MEDICAL HISTORY: Anxiety, PUD Surgical History: Denies all surgeries HEALTHCARE ADMINISTRATION INTERN History: No Pertinent HEALTHCARE ADMINISTRATION INTERN History Family History Family History: Family hx of DM, Family hx of Cancer, Family hx of heart anita, Family hx of Kidney anita Social History Smoker: Non-Smoker Alcohol: Denies ETOH Use Drugs: Marijuana Lives In: Home Constitutional: denies: chills, diaphoresis, fatigue, fever, malaise, sweats, weakness, others EENTM: denies: blurred vision, double vision, ear bleeding, ear discharge, ear drainage, ear pain, ear ringing, eye pain, eye redness, hearing loss, mouth pain, mouth swelling, nasal discharge, nose bleeding, nose congestion, nose pain, photophobia, tearing, throat pain, throat swelling, voice changes, others Respiratory: denies: cough, hemoptysis, orthopnea, SOB at rest, shortness of breath, SOB with excertion, stridor, wheezing, others Cardiovascular: denies: chest pain, dizzy spells, diaphoresis, Dyspnea on exertion, edema, irregular heart beat, left arm pain, lightheadedness, palpitations, PND, syncope, others Gastrointestinal: reports: abdominal pain, nausea, vomiting; denies: abdomen distended, blood streaked bowels, constipated, diarrhea, dysphagia, difficulty swallowing, hematemesis, melena, poor appetite, poor fluid intake, rectal bleeding, rectal pain, others Genitourinary: denies: abnormal vagina bleeding, burning, dyspareunia, dysuria, flank pain, frequency, hematuria, incontinence, pain, , vagina discharge, urgency, others Neurological: reports: seizure; denies: dizziness, fainting, headache, left sided numbness, left sided weakness, numbness, paresthesia, pre-existing deficit, right sided numbness, right sided weakness, speech problems, tingling, tremors, weakness, others Musculoskeletal: denies: back pain, gout, joint pain, joint swelling, muscle pain, muscle stiffness, neck pain, others Integumetry: denies: bruises, change in color, change in hair/nails, dryness, laceration, lesions, lumps, rash, wounds, others Allergic/Immunocompromised: denies: Difficulty Healing, Frequent Infections, Hives, Itching, others Hematologic/Lymphatic: denies: anemia, blood clots, easy bleeding, easy bruising, swollen glands, others Endocrine: denies: excessive hunger, excessive sweating, excessive thirst, excessive urination, flushing, intolerance to cold, intolerance to heat, unexplained weight gain, unexplained weight loss, others Psychiatric: denies: anxiety, bipolar disorder, depression, hopeless, panic disorder, schizophrenia, sleepless, suicidal, others Physical Exam General Appearance: Moderate Distress, Normal HEENT: Normal ENT Inspection, Pharynx Normal, TMs Normal Neck: Full Range of Motion, Non-Tender, Normal, Normal Inspection Respiratory: Chest Non-Tender, Lungs Clear, No Accessory Muscle Use, No Respiratory Distress, Normal Breath Sounds Cardiovascular: No Edema, No JVD, No Murmur, No Gallop, Normal Peripheral Pulses, Regular Rate/Rhythm Breast Exam: Deferred Gastrointestinal: No Organomegaly, Non Tender, No Pulsatile Mass, Normal Bowel Sounds, Soft Genitalia: Deferred Pelvic: Deferred Rectal: Deferred Extremities: No calf tenderness, Normal capillary refill, Normal inspection, Normal range of motion, Non-tender, No pedal edema Musculoskeletal : Apperance: Normal Neurologic: Alert, oil and gas recruiter II-XII nml as Tested, No Motor Deficits, Normal Affect, Normal Mood, No Sensory Deficits Cerebellar Function: NOT DONE Reflexes: NOT DONE Skin: Dry, Normal Color, Warm Peripheral Pulses: 3+ Radial (R), 3+ Radial (L) Lymphatic: No Adenopathy Was a procedure done? Was a procedure done?: No GI differential Dx Differential Diagnosis: Cholecystitis, Constipation, Diverticular disease, Esophagitis, Gastritis/PUD, Gastroenteritis, Pancreatitis X-Ray, Labs, Meds, VS Vital Signs Date Time Temp Pulse Resp B/P (MAP) Pulse Ox O2 Delivery O2 Flow Rate FiO2 01/17/25 05:25 74 22 135/64 01/17/25 05:22 97.7 72 22 135/64 (87) 99 97.7 01/17/25 02:32 98.4 85 20 147/86 100 98.4 Lab Test 01/17/25 02:51 Range/Units White Blood Count 17.4 H 4.4-10.8 10^3/uL Red Blood Count 4.85 4.0-5.20 10^6/uL Hemoglobin 14.1 12.2-16.2 g/dL Hematocrit 41.4 36.0-46.0 % Mean Corpuscular Volume 85.4 80.0-100.0 fL Mean Corpuscular Hemoglobin 29.0 28.0-32.0 pg Mean Corpuscular Hemoglobin Concent 34.0 32.0-36.0 g/dL Red Cell Distribution Width 14.3 11.8-14.3 % Platelet Count 272 140-450 10^3/uL Mean Platelet Volume 10.1 6.9-10.8 fL Neutrophils (%) (Auto) 72.7 37.0-80.0 % Lymphocytes (%) (Auto) 19.5 10.0-50.0 % Monocytes (%) (Auto) 7.4 0.0-12.0 % Eosinophils (%) (Auto) 0.2 0.0-7.0 % Basophils (%) (Auto) 0.2 0.0-2.0 % Neutrophils # (Auto) 12.6 H 1.6-8.6 10 ^3/uL Lymphocytes # (Auto) 3.4 0.4-5.4 10 ^3/uL Monocytes # (Auto) 1.3 0-1.3 10 ^3/uL Eosinophils # (Auto) 0 0-0.8 10 ^3/uL Basophils # (Auto) 0 0-0.2 10 ^3/uL Nucleated Red Blood Cells 0.1 % Sodium Level 140 136-145 mmol/L Potassium Level 3.4 L 3.5-5.1 mmol/L Chloride Level 107 98-107 mmol/L Carbon Dioxide Level 20 20-31 mmol/L Anion Gap 13 5-15 Blood Urea Nitrogen 10 9-23 mg/dL Creatinine 0.75 0.550-1.02 mg/dL Glomerular Filtration Rate Calc 110 >90 mL/min BUN/Creatinine Ratio 13.3 10.0-20.0 Serum Glucose 123 H 74-106 mg/dL Calcium Level 9.5 8.7-10.4 mg/dL Total Bilirubin 0.7 0.2-1.0 mg/dL Aspartate Amino Transferase (AST) 15 13-40 U/L Alanine Aminotransferase (ALT) 12 7-40 U/L Alkaline Phosphatase 83 46-116 U/L Total Protein 7.6 5.7-8.2 g/dL Albumin 4.8 3.2-4.8 g/dL Lipase 29 12-53 U/L Beta HCG, Quantitative 0.8 L 1.5-4.2 mIU/mL Current Medications Medications (Trade) Dose Ordered Sig/Cat Route Start Time Stop Time Status Last Admin Ondansetron HCl (Zofran) 4 mg ONCE ONCE IV 01/17/25 02:45 01/17/25 02:47 DC 01/17/25 05:25 Sodium Chloride 1,000 ml @ 1,000 mls/hr Q1H ONCE IVB 01/17/25 02:45 01/17/25 03:44 DC 01/17/25 05:25 Morphine Sulfate 4 mg ONCE ONCE IV 01/17/25 02:45 01/17/25 02:47 DC 01/17/25 05:25 Famotidine (Pepcid Injection) 20 mg ONCE ONCE IV 01/17/25 02:45 01/17/25 02:47 DC 01/17/25 05:25 Patient alert. Came in because of seizure. Vitals stable. Answering questions. Establish intravenous access. Was given fluids. Was given pain medication. WBC elevated. Explained to the patient. Continue monitoring. Time of 1ST Reevaluation: 02:52 Reevaluation 1ST: Unchanged Patient Education/Counseling: Diagnosis, Treatment Family Education/Counseling: No Family Present SEPSIS Sepsis Screen Physician Orders Urinalysis (01/17/25 02:45) Ct Ab Pel With Iv Con Only (01/17/25 05:08) Vital Signs Date Time Temp Pulse Resp B/P (MAP) Pulse Ox O2 Delivery O2 Flow Rate FiO2 01/17/25 05:25 74 22 135/64 01/17/25 05:22 97.7 72 22 135/64 (87) 99 97.7 01/17/25 02:32 98.4 85 20 147/86 100 98.4 Laboratory Tests Test 01/17/25 02:51 White Blood Count 17.4 10^3/uL (4.4-10.8) H Medications Medications Dose Ordered Sig/Cat Route Start Time Stop Time Status Last Admin Dose Admin Famotidine 20 mg ONCE ONCE IV 01/17/25 02:45 01/17/25 02:47 DC 01/17/25 05:25 Morphine Sulfate 4 mg ONCE ONCE IV 01/17/25 02:45 01/17/25 02:47 DC 01/17/25 05:25 Ondansetron HCl 4 mg ONCE ONCE IV 01/17/25 02:45 01/17/25 02:47 DC 01/17/25 05:25 Sodium Chloride 1,000 ml @ 1,000 mls/hr Q1H ONCE IVB 01/17/25 02:45 01/17/25 03:44 DC 01/17/25 05:25 Departure 1 Departure Time of Disposition: 07:22 Impression: Primary Impression: Leukocytosis Qualified Codes: D72.829 - Elevated white blood cell count, unspecified Additional Impression: Seizure Disposition: ADMITTED INPATIENT Admit to: Med Surg Condition: Guarded Critical Care Note Critical Care Time?: No Stability Stability form required: No Heart Score Heart Score: Heart Score Response (Comments) Value History N/A 0 EKG N/A 0 Age N/A 0 Risk Factors N/A 0 Troponin N/A 0 Total 0 I personally scribed for PAMELA GÓMEZ MD ([email or web address]) on 01/17/25 at 02:55. Electronically submitted by Mehul Corcoran ([email or web address]). PAMELA GÓMEZ MD Jan 17, 2025 02:55 MAGALIS SCRUGGS MD Jan 17, 2025 07:23
[2025-01-17 03:25] LABS: Hematocrit 41.4 % (36.0-46.0); Hemoglobin 14.1 g/dL (12.2-16.2); Mean Corpuscular Hemoglobin 29.0 pg (28.0-32.0); Mean Corpuscular Volume 85.4 fL (80.0-100.0); Nucleated Red Blood Cells % 0.1 %
[2025-01-17 03:33] LABS: Alanine Aminotransferase 12 U/L (7-40); Albumin 4.8 g/dL (3.2-4.8); Alkaline Phosphatase 83 U/L (46-116); Anion Gap 13 (5-15); BUN/Creatinine Ratio 13.3 (10.0-20.0); Blood Urea Nitrogen 10 mg/dL (9-23); Calcium 9.5 mg/dL (8.7-10.4); Lipase 29 U/L (12-53); Sodium 140 mmol/L (136-145); Total Protein 7.6 g/dL (5.7-8.2)
[2025-01-17 03:34] LABS: Bilirubin, Total 0.7 mg/dL (0.2-1.0)
[2025-01-17 03:37] LABS: Carbon Dioxide 20 mmol/L (20-31); Chloride 107 mmol/L (98-107); Glucose 123 mg/dL (74-106); Potassium 3.4 mmol/L (3.5-5.1)
[2025-01-17] MEDS: ONDANSETRON HCL 4 MG/2 ML VIAL IV ONE (05:25)
[2025-01-17] MEDS: FAMOTIDINE (10MG/ML) 2ML VL IV ONE (05:25)
[2025-01-17] MEDS: SODIUM CHLORIDE 0.9% 1,000 ML IVB ONE (05:25)
[2025-01-17] MEDS: MORPHINE SULFATE 4 MG/ML SYR/VIAL IV ONE (05:25)
[2025-01-17] MEDS: IOHEXOL 350 MG/ML 100ML IJ ONE (07:19)
[2025-01-17] MEDS: METOCLOPRAMIDE HCL 5MG/ml INJ 2ml VIAL IV ONE (08:04)
[2025-01-17 08:23] VITALS: PULSE 65; RESP 16; O2SAT 99
--- NOTE | 2025-01-17 09:20 | DVH ---
Indication: ABDOMINAL PAIN Technique: CT axial images of the abdomen and pelvis are obtained without contrast. Coronal and sagittal reformats were obtained. Radiation Dose Information: CTDI volume is 19.3 mGy. Dose-length product is 1066 mGy*cm Comparison: CT CT AB PEL WO CON-NO ORAL OR IV on DOS: 09/18/24 FINDINGS: There is limited interpretation of the abdomen and pelvis without administration of intravenous contrast. Lung bases demonstrate no pleural effusion. Adrenal glands, spleen, pancreas and liver unremarkable in shape. No CT evidence for cholelithiasis. No hydronephrosis /nephrolithiasis. Stomach partially distended. Small bowel loops are normal in caliber. Large bowel relatively nondistended. Normal appendix. Bladder is partially distended. No free pelvic fluid. No inguinal lymphadenopathy. No aggressive osseous process. Mild lumbar degenerative disc disease. 2 mm retrolisthesis L5 on S1. IMPRESSION: Limited evaluation without contrast. No CT evidence for acute abnormality of the abdomen / pelvis.
[2025-01-17] MEDS ORDERED: DOCUSATE SOD 100 MG CAP PO PRN (09:30)
[2025-01-17] MEDS ORDERED: ACETAMINOPHEN 325 MG TAB PO PRN (09:30)
[2025-01-17] MEDS ORDERED: cefTRIAXone SODIUM 150 MG in SODIUM CHLORIDE LOCK 3.75 ML IV SCH (10:00)
[2025-01-17] MEDS: SODIUM CHLORIDE 0.9% 1,000 ML IV ONE ×2 (10:21→22:00)
[2025-01-17] MEDS: POTASSIUM CHL 20 Meq TABLET PO ONE (10:21)
--- NOTE | 2025-01-17 10:28 | DVHHP2 ---
History of Present Illness Reason for Visit: Abdominal pain History of Present Illness Hemalatha Banda is a 29-year-old female with past medical history of gastritis, seizures, and anxiety, who came to the hospital for abdominal pain. Patient states her abdominal pain began on Monday and was intermittent. It has continued to worsen over the last couple of days with associated nausea, vomiting, and diarrhea. She states her seizures worsen when she is having abdominal pain. Yesterday she states she had 3 or 4 seizures and that is the most she has ever had in 1 day. Patient has been admitted here in the past due to gastritis and abdominal pain. She is following up with a GI doctor in about 2 weeks. HOME CHILD CARE PROVIDER: Seizure GI: GERD Psych: Anxiety Past Surgical History: Other (Facial surgery) Smoke: No ALCOHOL: rare Drugs: Marijuana Lives: with Family Domestic Violence: Neg Review of Systems Constitutional: No: Fever, Chills, Sweats, Weakness, Malaise, Other Eyes: No: Pain, Vision change, Conjunctivae inflammation, Eyelid inflammation, Other, Redness ENT: No: Ear pain, Ear discharge, Nose pain, Nose discharge, Nose congestion, Mouth pain, Mouth swelling, Throat pain, Throat swelling, Other Respiratory: No: Cough, Dry, Shortness of breath, SOB with excertion, Wheezing, Hemoptysis, Pleuritic Pain, Sputum, Wheezing, Other Cardiovascular: No: Chest Pain, Palpitations, Orthopnea, Paroxysmal Noc. Dyspnea, Edema, Lt Headedness, Other Gastrointestinal: Nausea, Vomiting, Abdominal Pain, Diarrhea; No: Constipation, Melena, Hematochezia, Other Genitourinary: No Dysuria, No Frequency, No Incontinence, No Hematuria, No Retention, No Other Musculoskeletal: No: other, neck pain, shoulder pain, arm pain, back pain, hand pain, leg pain, foot pain Skin: No: Rash, Lesions, Jaundice, Bruising, Other Neurological: No: Weakness, Numbness, Incoordination, Change in speech, Confusion, Seizures, Other Allergies: Coded Allergies: Iodine (Verified Allergy, Unknown, 07/20/22) Uncoded Allergies: IV CONTRAST (Allergy, Unknown, 09/19/20) Exam Vital Signs Vital Signs Date Time Temp Pulse Resp B/P (MAP) Pulse Ox O2 Delivery O2 Flow Rate FiO2 01/17/25 08:23 65 16 99 Room Air* 0 21 01/17/25 07:39 98.0 119/82 (94) 98.0 General Appearance: Alert, Oriented X3, Cooperative HEENT: Atraumatic, PERRLA, Other (Mucous membr dry) Respiratory: Clear to auscultation, Normal air movement Cardiovascular: Normal S1, Normal S2, Other (SB-SR,) Abdominal: Soft, Other (Disuse abdominal tenderness, hyperactive bowel sounds) Extremities: No clubbing, No cyanosis, No edema, Normal pulses Skin: No rashes, No breakdown, No significant lesion Neuro: Normal gait, Normal speech, Strength at 5/5 X4 ext, Normal tone Psych/Mental Status: Mental status NL, Mood NL Labs/Xrays Labs Test 01/17/25 02:51 Range/Units White Blood Count 17.4 H 4.4-10.8 10^3/uL Red Blood Count 4.85 4.0-5.20 10^6/uL Hemoglobin 14.1 12.2-16.2 g/dL Hematocrit 41.4 36.0-46.0 % Mean Corpuscular Volume 85.4 80.0-100.0 fL Mean Corpuscular Hemoglobin 29.0 28.0-32.0 pg Mean Corpuscular Hemoglobin Concent 34.0 32.0-36.0 g/dL Red Cell Distribution Width 14.3 11.8-14.3 % Platelet Count 272 140-450 10^3/uL Mean Platelet Volume 10.1 6.9-10.8 fL Neutrophils (%) (Auto) 72.7 37.0-80.0 % Lymphocytes (%) (Auto) 19.5 10.0-50.0 % Monocytes (%) (Auto) 7.4 0.0-12.0 % Eosinophils (%) (Auto) 0.2 0.0-7.0 % Basophils (%) (Auto) 0.2 0.0-2.0 % Neutrophils # (Auto) 12.6 H 1.6-8.6 10 ^3/uL Lymphocytes # (Auto) 3.4 0.4-5.4 10 ^3/uL Monocytes # (Auto) 1.3 0-1.3 10 ^3/uL Eosinophils # (Auto) 0 0-0.8 10 ^3/uL Basophils # (Auto) 0 0-0.2 10 ^3/uL Nucleated Red Blood Cells 0.1 % Sodium Level 140 136-145 mmol/L Potassium Level 3.4 L 3.5-5.1 mmol/L Chloride Level 107 98-107 mmol/L Carbon Dioxide Level 20 20-31 mmol/L Anion Gap 13 5-15 Blood Urea Nitrogen 10 9-23 mg/dL Creatinine 0.75 0.550-1.02 mg/dL Glomerular Filtration Rate Calc 110 >90 mL/min BUN/Creatinine Ratio 13.3 10.0-20.0 Serum Glucose 123 H 74-106 mg/dL Calcium Level 9.5 8.7-10.4 mg/dL Total Bilirubin 0.7 0.2-1.0 mg/dL Aspartate Amino Transferase (AST) 15 13-40 U/L Alanine Aminotransferase (ALT) 12 7-40 U/L Alkaline Phosphatase 83 46-116 U/L Total Protein 7.6 5.7-8.2 g/dL Albumin 4.8 3.2-4.8 g/dL Lipase 29 12-53 U/L Beta HCG, Quantitative 0.8 L 1.5-4.2 mIU/mL Indication: ABDOMINAL PAIN FINDINGS: There is limited interpretation of the abdomen and pelvis without administration of intravenous contrast. Lung bases demonstrate no pleural effusion. Adrenal glands, spleen, pancreas and liver unremarkable in shape. No CT evidence for cholelithiasis. No hydronephrosis /nephrolithiasis. Stomach partially distended. Small bowel loops are normal in caliber. Large bowel relatively nondistended. Normal appendix. Bladder is partially distended. No free pelvic fluid. No inguinal lymphadenopathy. No aggressive osseous process. Mild lumbar degenerative disc disease. 2 mm retrolisthesis L5 on S1. IMPRESSION: Limited evaluation without contrast. No CT evidence for acute abnormality of the abdomen / pelvis. SEPSIS Sepsis Screen Date sepsis recognized/suspect: Jan 17, 2025 Time Sepsis recognized/suspect: 0732 Recent Procedure: No On Antibiotic Therapy: No Respiratory Rate >20: No Heart Rate >90: No Temp<36 C (96.8 F) or >38.3 C: No SBP <90 or MAP <65 mmHG: No New Acute Mental Status Change: No Is the patient on CPAP, BIPAP,: No Physician Orders Urinalysis (01/17/25 02:45) Ct Ab Pel Wo Con-No Oral Or Iv (01/17/25 07:56) Admit (01/17/25 09:30) Code Status (01/17/25 09:30) Hydrocodone-Acet 5/325mg Tab ([place] (01/17/25 09:30) Ondansetron Hcl (Zofran) (01/17/25 09:30) Docusate Sodium Capsule (Colace Capsule) (01/17/25 09:30) Complete Blood Count (01/18/25 04:00) Comprehensive Metabolic Panel (01/18/25 04:00) Condition: Serious (01/17/25 09:30) Acetaminophen Tablet (Tylenol Tablet) (01/17/25 09:30) Morphine Sulfate Injection (01/17/25 09:30) Clear Liq Diet (01/17/25 Breakfast) Ceftriaxone Pediatric Rocephin (01/17/25 10:00) Metronidazole Ivpb Flagyl (01/17/25 14:00) Vital Signs Date Time Temp Pulse Resp B/P (MAP) Pulse Ox O2 Delivery O2 Flow Rate FiO2 01/17/25 08:23 65 16 99 Room Air* 0 21 01/17/25 07:39 98.0 65 18 119/82 (94) 96 98.0 01/17/25 07:32 62 16 119/82 01/17/25 05:25 74 22 135/64 01/17/25 05:22 97.7 72 22 135/64 (87) 99 97.7 01/17/25 02:32 98.4 85 20 147/86 100 98.4 Laboratory Tests Test 01/17/25 02:51 White Blood Count 17.4 10^3/uL (4.4-10.8) H Medications Medications Dose Ordered Sig/Cat Route Start Time Stop Time Status Last Admin Dose Admin Famotidine 20 mg ONCE ONCE IV 01/17/25 02:45 01/17/25 02:47 DC 01/17/25 05:25 20 MG Metoclopramide HCl 4 mg ONCE ONCE IV 01/17/25 08:00 01/17/25 08:01 DC 01/17/25 08:04 4 MG Morphine Sulfate 4 mg ONCE ONCE IV 01/17/25 02:45 01/17/25 02:47 DC 01/17/25 05:25 4 MG Ondansetron HCl 4 mg ONCE ONCE IV 01/17/25 02:45 01/17/25 02:47 DC 01/17/25 05:25 4 MG Sodium Chloride 1,000 ml @ 1,000 mls/hr Q1H ONCE IVB 01/17/25 02:45 01/17/25 03:44 DC 01/17/25 05:25 1,000 MLS/HR Assessment/Plan Assessment/Plan Assessment: Gastritis, Leukocytosis, Hypokalemia, Seizures, Plan: Admit to Med-Surg, IV antibiotics, IV hydration, Clear liquid diet, Manage/Monitor electrolytes, Home medications reconciled, Plan discussed with: Patient My Orders Orders - SEBAS ZUNIGA Procedure Category Date Status Time Admit ADMIT 01/17/25 Verified 09:30 Code Status CODE 01/17/25 Verified 09:30 Hydrocodone-Acet PHA 01/17/25 Verified 5/325mg Tab ([place] 09:30 Ondansetron Hcl PHA 01/17/25 Verified (Zofran) 09:30 Docusate Sodium PHA 01/17/25 Verified Capsule (Colace 09:30 Complete Blood Count LAB 01/18/25 Verified 04:00 Comprehensive LAB 01/18/25 Verified Metabolic Panel 04:00 Condition: Serious NELLY 01/17/25 Verified 09:30 Acetaminophen Tablet PHA 01/17/25 Verified (Tylenol Tablet) 09:30 Morphine Sulfate PHA 01/17/25 Verified Injection 09:30 Clear Liq Diet DIET 01/17/25 Verified Breakfast Ceftriaxone Pediatric PHA 01/17/25 Verified Rocephin 10:00 Metronidazole Ivpb PHA 01/17/25 Verified Flagyl 14:00 Date of Service: Jan 17, 2025 Billing Provider: SEBAS ZUNIGA Common Visit Codes: [id number] INP/OBS CARE (MOD) SEBAS ZUNIGA Jan 17, 2025 10:28
[2025-01-17] MEDS: ONDANSETRON HCL 4 MG/2 ML VIAL IV PRN (12:11)
[2025-01-17] MEDS: MORPHINE SULFATE INJ 2 MG/ml SYRG IV PRN (12:17)
[2025-01-17 13:00] VITALS: BP 146/86; PULSE 58; RESP 20; TEMP 99.2; O2SAT 100
[2025-01-17 15:00] VITALS: PULSE 58; RESP 17; O2SAT 98
[2025-01-17] MEDS: METOCLOPRAMIDE HCL 5MG/ml INJ 2ml VIAL IV PRN (16:04)
[2025-01-17] MEDS ORDERED: TOPI25TA84 PO (16:33)
[2025-01-17 17:00] VITALS: BP 129/77; PULSE 53; RESP 19; TEMP 99.9; O2SAT 98
[2025-01-17 19:11] LABS: Potassium 3.7 mmol/L (3.5-5.1)
[2025-01-17 19:14] LABS: Urine Protein, UAD TRACE (Negative)
[2025-01-17 19:18] LABS: Magnesium 2.0 mg/dL (1.6-2.6)
[2025-01-17 20:00] VITALS: PULSE 63; RESP 18; O2SAT 98
[2025-01-17 21:00] VITALS: BP 105/73; PULSE 63; RESP 18; TEMP 99; O2SAT 98
[2025-01-17] MEDS: TOPIRAMATE 25 MG TAB PO SCH (22:25)
[2025-01-18] VITALS (7 sets, daily range): BP systolic 102–149; BP diastolic 67–90; PULSE 58–70; RESP 16–20; TEMP 98–99.1; O2SAT 90–100
[2025-01-18 06:03] LABS: Hematocrit 38.3 % (36.0-46.0); Hemoglobin 12.7 g/dL (12.2-16.2); Mean Corpuscular Hemoglobin 28.4 pg (28.0-32.0); Mean Corpuscular Volume 86.0 fL (80.0-100.0); Nucleated Red Blood Cells % 0.1 %
[2025-01-18 06:34] LABS: Alanine Aminotransferase 12 U/L (7-40); Alkaline Phosphatase 66 U/L (46-116); Anion Gap 13 (5-15); BUN/Creatinine Ratio 10.9 (10.0-20.0); Glucose 85 mg/dL (74-106); Sodium 144 mmol/L (136-145); Total Protein 5.9 g/dL (5.7-8.2)
[2025-01-18 06:35] LABS: Albumin 3.6 g/dL (3.2-4.8); Bilirubin, Total 0.6 mg/dL (0.2-1.0)
[2025-01-18 06:44] LABS: Blood Urea Nitrogen 6 mg/dL (9-23); Calcium 7.3 mg/dL (8.7-10.4); Carbon Dioxide 18 mmol/L (20-31); Chloride 113 mmol/L (98-107); Potassium 3.3 mmol/L (3.5-5.1)
[2025-01-18] MEDS: HYDROcodone-ACET 5/325MG TAB PO PRN (13:41)
[2025-01-18] MEDS: POTASSIUM CHL 20 Meq TABLET PO ONE (14:59)
--- NOTE | 2025-01-18 15:40 | DVHPN2 ---
Subjective Patient is here for abdominal pain also patient has a known history of seizure disorder currently on Topamax. Changes from previous H/P or p: No Changes Eyes: No Pain, No Vision change, No Conjunctivae inflammation, No Eyelid inflammation, No Other, No Redness ENT: No Ear pain, No Ear discharge, No Nose pain, No Nose discharge, No Nose congestion, No Mouth pain, No Mouth swelling, No Throat pain, No Throat swelling, No Other Cardiovascular: No Chest Pain, No Palpitations, No Orthopnea, No Paroxysmal Noc. Dyspnea, No Edema, No Lt Headedness, No Other Respiratory: No Cough, No Dry, No Shortness of breath, No SOB with excertion, No Wheezing, No Hemoptysis, No Pleuritic Pain, No Sputum, No Other Gastrointestinal: Nausea, Vomiting, Abdominal Pain, Diarrhea; No Constipation, No Melena, No Hematochezia, No Other Genitourinary: No Dysuria, No Frequency, No Incontinence, No Hematuria, No Retention, No Other Musculoskeletal: No other, No neck pain, No shoulder pain, No arm pain, No back pain, No hand pain, No leg pain, No foot pain Skin: No Rash, No Lesions, No Jaundice, No Bruising, No Other Objective Vitals Vital Signs Date Time Temp Pulse Resp B/P (MAP) Pulse Ox O2 Delivery O2 Flow Rate FiO2 01/18/25 13:00 99.1 62 18 131/85 (100) 90 99.1 01/18/25 08:00 Room Air* 0 21 Intake/Output Intake and Output 01/18/25 07:00 Intake Total 1250 ml Balance 1250 ml Intake Oral 100 ml IV Total 1150 ml # Voids 4 # Bowel Movements 2 Exam HEENT pupils are reactive Neck is supple CV is S1-S2 regular rate and rhythm Diminished breath sounds bases GI positive bowel sound Extremity no edema 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 Medications Current Medications Medications Dose Ordered Sig/Cat Route Start Time Stop Time Status Last Admin Dose Admin Acetaminophen/ Hydrocodone Bitart 1 tab Q4HP PRN PO 01/17/25 09:30 01/18/25 13:41 1 TAB Ondansetron HCl 4 mg Q4HP PRN IV 01/17/25 09:30 01/18/25 10:30 4 MG Docusate Sodium 100 mg BIDPRN PRN PO 01/17/25 09:30 Acetaminophen 650 mg Q6HP PRN PO 01/17/25 09:30 Morphine Sulfate 2 mg Q4HPRN PRN IV 01/17/25 09:30 01/18/25 10:30 2 MG Metronidazole 100 ml @ 100 mls/hr Q8HR IV 01/17/25 14:00 01/18/25 14:59 100 MLS/HR Ceftriaxone Sodium 50 ml @ 100 mls/hr DAILY IV 01/17/25 10:00 01/18/25 10:29 100 MLS/HR Metoclopramide HCl 10 mg Q6HPRN PRN IV 01/17/25 10:00 01/18/25 05:17 10 MG Topiramate 25 mg BID PO 01/17/25 22:00 01/18/25 12:58 25 MG Laboratory Results Laboratory Tests 01/18/25 05:07 Chemistry Test 01/17/25 18:44 01/18/25 05:07 Magnesium Level 2.0 mg/dL (1.6-2.6) Albumin 3.6 g/dL (3.2-4.8) Calcium Level 7.3 mg/dL (8.7-10.4) L Total Protein 5.9 g/dL (5.7-8.2) LFT Test 01/18/25 05:07 Alanine Aminotransferase (ALT) 12 U/L (7-40) Alkaline Phosphatase 66 U/L (46-116) Aspartate Amino Transferase (AST) 13 U/L (13-40) Total Bilirubin 0.6 mg/dL (0.2-1.0) Urinalysis Test 01/17/25 17:42 Urine Color Yellow (Yellow) Urine Clarity Clear (Clear) Urine pH 5.5 (5.0-9.0) Urine Specific [place] 1.031 (1.001-1.035) Urine Protein Trace (Negative) H Urine Ketones 4+ (Negative) H Urine Blood Negative /uL (Negative) Urine Nitrite Negative (Negative) Urine Bilirubin Negative (Negative) Urine Urobilinogen Normal mg/dL (Negative) Urine Leukocyte Esterase Negative /uL (Negative) Urine RBC 2 /hpf (0 - 4) Urine Microscopic WBC 2 /HPF (0-5) Urine Squamous Epithelial Cells Few /hpf (<5) Urine Bacteria Few /hpf (None Seen) H Urine Mucus Few (None Seen) Urine Glucose Normal mg/dL (Normal) Assessment/Plan Assessment/Plan 29-year-old female with a known history of seizure disorder currently on Topamax presented to the hospital with a nausea and vomiting intractable abdominal pain found to have 1. Intractable nausea and vomiting 2. Gastritis 3. Leukocytosis 4. Seizure disorder 5. 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
--- NOTE | 2025-01-18 18:55 | DVHINCON2 ---
Date of service: Jan 18, 2025 Referring Physician Bee Reason for Consultation Abdominal pain nausea and vomiting History of Present Illness The patient is a 29-year-old female with past medical history significant for abdominal pain, nausea and vomiting for approximately 1 week. The patient s tates that she has a history of seizure disorders and is on medication with can upset her stomach. The patient has been hospitalized multiple times in the past for similar findings. Patient was told that she had enteritis. The patient has a follow up in [facility] on January 29 with a GI doctor. For review of the chart at this institution shows prior history of endoscopy showed gastritis esophagitis and erosions. The patient denies any melena or hematemesis. She does not drink alcohol or smoke tobacco. The patient does smoke marijuana. She states in the past workup has only showed gastritis. She denies any family history of inflammatory bowel disease or any GI malignancies. Past Medical History As above Anxiety Past Surgical History Facial surgery Family History: Diabetes mellitus G8 MOTHER FH: schizophrenia G8 FATHER Hypercholesterolemia G8 FATHER Hypertension G8 FATHER Social History As per HPI Allergies: Coded Allergies: Iodine (Verified Allergy, Unknown, 07/20/22) Uncoded Allergies: IV CONTRAST (Allergy, Unknown, 09/19/20) Home Meds Reported Medications Topiramate (Topiramate) 25 Mg Tab, 1 TAB PO BID 01/17/25 Current Medications Current Medications Medications (Trade) Dose Ordered Sig/Cat Route PRN Reason Start Time Stop Time Status Last Admin Topiramate (Topamax) 25 mg BID PO 01/17/25 22:00 01/18/25 12:58 Pantoprazole Sodium (Protonix) 40 mg DAILY IV 01/19/25 10:00 Review of Systems Review of systems negative other than HPI Vital Signs Vital Signs Date Time Temp Pulse Resp B/P (MAP) Pulse Ox O2 Delivery O2 Flow Rate FiO2 01/18/25 17:46 66 18 126/91 01/18/25 17:00 98.6 100 98.6 01/18/25 08:00 Room Air* 0 21 Physical Exam General: Alert well-developed well-nourished female no distress new line HEENT: NC/AT EOMI PERRLA SOB clear, moist mucous membranes Heart: Regular rate and rhythm Abdomen: Soft mild epigastric tenderness palpation, obese Extremities: No clubbing cyanosis edema Neuro: Cranial nerves 2-12 grossly intact moves all 4 extremities Skin: No rashes bruises or pruritus Labs/Diagnostic Data Labs Test 01/18/25 05:07 01/17/25 18:44 01/17/25 17:42 01/17/25 02:51 Range/Units White Blood Count 12.4 #H 4.4-10.8 10^3/uL Red Blood Count 4.46 4.0-5.20 10^6/uL Hemoglobin 12.7 12.2-16.2 g/dL Hematocrit 38.3 36.0-46.0 % Mean Corpuscular Volume 86.0 80.0-100.0 fL Mean Corpuscular Hemoglobin 28.4 28.0-32.0 pg Mean Corpuscular Hemoglobin Concent 33.1 32.0-36.0 g/dL Red Cell Distribution Width 14.4 H 11.8-14.3 % Platelet Count 241 140-450 10^3/uL Mean Platelet Volume 10.2 6.9-10.8 fL Neutrophils (%) (Auto) 53.5 37.0-80.0 % Lymphocytes (%) (Auto) 35.8 10.0-50.0 % Monocytes (%) (Auto) 9.8 0.0-12.0 % Eosinophils (%) (Auto) 0.4 0.0-7.0 % Basophils (%) (Auto) 0.5 0.0-2.0 % Neutrophils # (Auto) 6.6 1.6-8.6 10 ^3/uL Lymphocytes # (Auto) 4.4 0.4-5.4 10 ^3/uL Monocytes # (Auto) 1.2 0-1.3 10 ^3/uL Eosinophils # (Auto) 0.1 0-0.8 10 ^3/uL Basophils # (Auto) 0.1 0-0.2 10 ^3/uL Nucleated Red Blood Cells 0.1 % Sodium Level 144 136-145 mmol/L Potassium Level 3.3 L 3.5-5.1 mmol/L Chloride Level 113 H 98-107 mmol/L Carbon Dioxide Level 18 L 20-31 mmol/L Anion Gap 13 5-15 Blood Urea Nitrogen 6 L 9-23 mg/dL Creatinine 0.55 0.550-1.02 mg/dL Glomerular Filtration Rate Calc 126 >90 mL/min BUN/Creatinine Ratio 10.9 10.0-20.0 Serum Glucose 85 74-106 mg/dL Calcium Level 7.3 L 8.7-10.4 mg/dL Total Bilirubin 0.6 0.2-1.0 mg/dL Aspartate Amino Transferase (AST) 13 13-40 U/L Alanine Aminotransferase (ALT) 12 7-40 U/L Alkaline Phosphatase 66 46-116 U/L Total Protein 5.9 5.7-8.2 g/dL Albumin 3.6 3.2-4.8 g/dL Magnesium Level 2.0 1.6-2.6 mg/dL Urine Color Yellow Yellow Urine Clarity Clear Clear Urine pH 5.5 5.0-9.0 Urine Specific [place] 1.031 1.001-1.035 Urine Protein Trace H Negative Urine Ketones 4+ H Negative Urine Blood Negative Negative /uL Urine Nitrite Negative Negative Urine Bilirubin Negative Negative Urine Urobilinogen Normal Negative mg/dL Urine Leukocyte Esterase Negative Negative /uL Urine RBC 2 0 - 4 /hpf Urine Microscopic WBC 2 0-5 /HPF Urine Squamous Epithelial Cells Few <5 /hpf Urine Bacteria Few H None Seen /hpf Urine Mucus Few None Seen Urine Glucose Normal Normal mg/dL Lipase 29 12-53 U/L Beta HCG, Quantitative 0.8 L 1.5-4.2 mIU/mL Assessment 1. Abdominal pain 2. Nausea and vomiting 3. History of prior EGD showing gastritis and esophagitis new line new line findings are suspicious for gastroenteritis versus cannabinoid hyperemesis syndrome Problems(with codes): (1) Intractable nausea and vomiting (2) Abdominal pain of unknown etiology (3) Gastritis (4) Leukocytosis (5) Seizure Plan/Recommendation 1. Anti-reflux precautions 2. Antiemetics 3. Clear liquid diet as tolerated 4. No endoscopy colonoscopy at this time 5. Cannabinoid hyperemesis syndrome education should be given to the patient 6. Proton pump inhibitor daily 7. We will follow 8. Patient will follow up with her GI physician in 2 weeks Plan discussed with: Patient THANIA MARLEY MD Jan 18, 2025 18:55
[2025-01-19 01:00] VITALS: BP 137/88; PULSE 68; RESP 19; TEMP 98.2; O2SAT 100
[2025-01-19 05:00] VITALS: BP 110/70; PULSE 63; RESP 16; TEMP 98.1; O2SAT 98
[2025-01-19 08:00] VITALS: PULSE 63; RESP 18; O2SAT 98
[2025-01-19 09:00] VITALS: BP 149/98; PULSE 65; RESP 20; TEMP 98.1; O2SAT 100
[2025-01-19] MEDS: PANTOPRAZOLE 40 MG/10 ML VIAL INJ IV SCH (10:01)
[2025-01-19 13:00] VITALS: BP 110/75; PULSE 56; RESP 20; TEMP 98.4; O2SAT 98
[2025-01-19] MEDS ORDERED: PANT40TA2 PO (14:47)
--- NOTE | 2025-01-19 14:49 | DVHDS2 ---
Discharge Summary Date of Admission Jan 17, 2025 at 09:30 Date of Discharge: Jan 19, 2025 Labs/Diagnostic Data: Laboratory Results Test 01/18/25 05:07 01/17/25 18:44 01/17/25 17:42 01/17/25 02:51 White Blood Count 12.4 10^3/uL (4.4-10.8) Red Blood Count 4.46 10^6/uL (4.0-5.20) Hemoglobin 12.7 g/dL (12.2-16.2) Hematocrit 38.3 % (36.0-46.0) Mean Corpuscular Volume 86.0 fL (80.0-100.0) Mean Corpuscular Hemoglobin 28.4 pg (28.0-32.0) Mean Corpuscular Hemoglobin Concent 33.1 g/dL (32.0-36.0) Red Cell Distribution Width 14.4 % (11.8-14.3) Platelet Count 241 10^3/uL (140-450) Mean Platelet Volume 10.2 fL (6.9-10.8) Neutrophils (%) (Auto) 53.5 % (37.0-80.0) Lymphocytes (%) (Auto) 35.8 % (10.0-50.0) Monocytes (%) (Auto) 9.8 % (0.0-12.0) Eosinophils (%) (Auto) 0.4 % (0.0-7.0) Basophils (%) (Auto) 0.5 % (0.0-2.0) Neutrophils # (Auto) 6.6 10 ^3/uL (1.6-8.6) Lymphocytes # (Auto) 4.4 10 ^3/uL (0.4-5.4) Monocytes # (Auto) 1.2 10 ^3/uL (0-1.3) Eosinophils # (Auto) 0.1 10 ^3/uL (0-0.8) Basophils # (Auto) 0.1 10 ^3/uL (0-0.2) Nucleated Red Blood Cells 0.1 % Sodium Level 144 mmol/L (136-145) Potassium Level 3.3 mmol/L (3.5-5.1) Chloride Level 113 mmol/L (98-107) Carbon Dioxide Level 18 mmol/L (20-31) Anion Gap 13 (5-15) Blood Urea Nitrogen 6 mg/dL (9-23) Creatinine 0.55 mg/dL (0.550-1.02) Glomerular Filtration Rate Calc 126 mL/min (>90) BUN/Creatinine Ratio 10.9 (10.0-20.0) Serum Glucose 85 mg/dL (74-106) Calcium Level 7.3 mg/dL (8.7-10.4) Total Bilirubin 0.6 mg/dL (0.2-1.0) Aspartate Amino Transferase (AST) 13 U/L (13-40) Alanine Aminotransferase (ALT) 12 U/L (7-40) Alkaline Phosphatase 66 U/L (46-116) Total Protein 5.9 g/dL (5.7-8.2) Albumin 3.6 g/dL (3.2-4.8) Magnesium Level 2.0 mg/dL (1.6-2.6) Urine Color Yellow (Yellow) Urine Clarity Clear (Clear) Urine pH 5.5 (5.0-9.0) Urine Specific [place] 1.031 (1.001-1.035) Urine Protein Trace (Negative) Urine Ketones 4+ (Negative) Urine Blood Negative /uL (Negative) Urine Nitrite Negative (Negative) Urine Bilirubin Negative (Negative) Urine Urobilinogen Normal mg/dL (Negative) Urine Leukocyte Esterase Negative /uL (Negative) Urine RBC 2 /hpf (0 - 4) Urine Microscopic WBC 2 /HPF (0-5) Urine Squamous Epithelial Cells Few /hpf (<5) Urine Bacteria Few /hpf (None Seen) Urine Mucus Few (None Seen) Urine Glucose Normal mg/dL (Normal) Lipase 29 U/L (12-53) Beta HCG, Quantitative 0.8 mIU/mL (1.5-4.2) Other Laboratory Tests 01/18/25 05:07 Brief Hx & Hospital Course: 29-year-old female with a known history of seizure disorder currently on Topamax presented to the hospital with a nausea and vomiting intractable abdominal pain found to have cyclic vomiting syndrome. Patient does have known history of chronic marijuana use. Patient was seen by GI started on Protonix. Patient's probably has a gastritis/gastroenteritis which is viral. Patient does not need any IV antibiotics or p.o. antibiotics. Patient does have morbid obesity class three, diet weight reduction and exercise counseling has been discussed. Patient also has seizure disorder currently on Topamax. Patient is being discharged under stable condition marijuana cessation counseling has been discussed. Patient is currently understand verbalized understanding and agreeable to plan. Condition at Discharge: Stable Final Diagnosis/Problems List 29-year-old female with a known history of seizure disorder currently on Topamax presented to the hospital with a nausea and vomiting intractable abdominal pain found to have 1. Intractable nausea and vomiting/cyclic vomiting syndrome 2. Gastritis 3. Leukocytosis likely reactive 4. Seizure disorder 5. Morbid obesity classIII 6. Chronic marijuana use, marijuana cessation counseling Discharge Disposition: Home SNF Discharge Will this Physician continue t: No Discharge Instruct/Medications Diet: Regular Activity: No Restrictions, As Tolerated Follow Up/Referral: Please follow up with the PCP in 1-2 weeks Outpatient follow up with the GI in 1-2 weeks Medications: Resume home medications New Medications: Pantoprazole Sodium Sesquihydr (Protonix) 40 Mg Tab 40 MG PO DAILY, #30 TAB Continued Medications: Topiramate (Topiramate) 25 Mg Tab 1 TAB PO BID Scheduled Pantoprazole Sodium Sesquihydr (Protonix), 40 MG PO DAILY Topiramate (Topiramate), 1 TAB PO BID, (Reported) Discharge Statement: "Patient was advised to return to the ER or call 911 if any headaches, dizziness, shortness of breath, chest pain, abdominal pain, bleeding, fevers, or worsening of medical condition. Patient was counseled about treatment plan, medications, possible side effects, patientverbalized understanding. All questions were answered to the best of my ability. This discharge took greater then 30 minutes in planning, reviewing documentation, counseling the patient, and discussing with other team members." ASSESSMENT ASSESSMENT Assessment 29-year-old female with a known history of seizure disorder currently on Topamax presented to the hospital with a nausea and vomiting intractable abdominal pain found to have 1. Intractable nausea and vomiting/cyclic vomiting syndrome 2. Gastritis 3. Leukocytosis likely reactive 4. Seizure disorder 5. Morbid obesity classIII 6. Chronic marijuana use, marijuana cessation counseling Date of Service: Jan 19, 2025 Billing Provider: SOREN FOWLER MD Common Visit Codes: [id number] DISCH DAY >30min SOREN FOWLER MD Jan 19, 2025 14:49
[2025-01-19 16:04] VITALS: BP 149/98; PULSE 65; RESP 18; TEMP 98.1; O2SAT 100
--- NOTE | 2025-01-19 23:08 | DVHPN2 ---
Progress Note - Dictate Date Seen: Jan 19, 2025 (Late entryTime of visit 3:30 p.m.) Medical Necessity Reason Pt with a Central, PICC or Fol: No Subjective No new complaints, patient is sitting up in bed Tolerating a diet vital signs Vital Sign Date Time Temp Pulse Resp B/P (MAP) Pulse Ox O2 Delivery O2 Flow Rate FiO2 01/19/25 16:04 98.1 65 18 100 01/19/25 13:00 110/75 (87) 01/19/25 08:00 Room Air* 0 21 Total Intake and Output 01/18/25 01/18/25 01/19/25 15:00 23:00 07:00 Intake Total 330 ml 500 ml 450 ml Output Total 400 ml 250 ml Balance 330 ml 100 ml 200 ml objective General: Alert well-developed well-nourished female no distress Heart: Regular rate and rhythm Abdomen: Soft mild epigastric tenderness palpation, obese Extremities: No clubbing cyanosis edema Neuro: Cranial nerves 2-12 grossly intact moves all 4 extremities Skin: No rashes bruises or pruritus laboratory and microbiology Laboratory Tests 01/18/25 05:07 Test 01/18/25 05:07 Range/Units Serum Glucose 85 74-106 mg/dL Problems(with codes): (1) Intractable nausea and vomiting (2) Abdominal pain of unknown etiology (3) Gastritis (4) Leukocytosis Prognosis Plan/Recommendation 1. Anti-reflux precautions 2. Antiemetics 3. Clear liquid diet as tolerated 4. No endoscopy colonoscopy at this time 5. Cannabinoid hyperemesis syndrome education should be given to the patient 6. Proton pump inhibitor daily 7. We will follow 8. Patient will follow up with her GI physician in 2 weeks, patient has a appointment in [place] 9. Discharge planning is in progress Plan discussed with: Patient MARITO RUSSO MD Jan 19, 2025 23:08
== END 2025-01-19 16:40 | disposition home or self-care (01) | DRG 241 ==
LOC: EDBD 02:29 → ER 02:29 → OVERFLOW 09:30 → WEST WING 11:43
PROVIDERS: ADMIT Nurse Practitioner Family; ATTEND Nurse Practitioner Family
DX: K29.70 Gastritis, unspecified, without bleeding (principal); A08.4 Viral intestinal infection, unspecified; E66.813 Obesity, class 3; G40.909 Epilepsy, unspecified, not intractable, without status epilepticus; R11.16 Cannabis hyperemesis syndrome; E87.6 Hypokalemia; F41.9 Anxiety disorder, unspecified; Z68.41 Body mass index [BMI] 40.0-44.9, adult; F12.90 Cannabis use, unspecified, uncomplicated; K21.9 Gastro-esophageal reflux disease without esophagitis; Z81.8 Family history of other mental and behavioral disorders; Z82.49 Family history of ischemic heart disease and other diseases of the circulatory system; Z83.3 Family history of diabetes mellitus; Z87.11 Personal history of peptic ulcer disease; Z87.19 Personal history of other diseases of the digestive system; Z91.041 Radiographic dye allergy status; Z79.899 Other long term (current) drug therapy; Z71.51 Drug abuse counseling and surveillance of drug abuser
CPT/HCPCS: 36415; 74176; 80053; 81001; 83690; 83735; 84132; 84702; 85025; 96374; G0378; J2405; J2470; J3490